=== PATIENT | male | born 1980 | race Caucasian/White ===

== ENCOUNTER 2017-02-14 16:13 | Emergency (ER) | payer BC, OTHER ==
[~2017-02-14] VITALS: Ht 185.4 cm; Wt 174.8 kg
[~2017-02-14 16:13] MED LIST: BUPR150T5 PO; IBUP-1050 PO; LISI-461 PO; RANI150T3 PO
[2017-02-14 16:27] VITALS: TEMP 36.8; O2SAT 94; Ht 185.4 cm; Wt 174.8 kg
[2017-02-14] MEDS ORDERED: SODIUM CHLORIDE 0.9% 1000ML 1,000 ML IV STA ×2 (16:35)
[2017-02-14] MEDS ORDERED: LSNP/30 PO (16:58)
[2017-02-14] MEDS ORDERED: BUPRTAB51 PO (16:58)
[2017-02-14] MEDS ORDERED: CYCL5TAB PO (16:58)
[2017-02-14 17:03] LABS: BASO % 0.2 %; BASO ABS # 0.02 K/uL (0-0.2); COMPLETE YES; HEMATOCRIT 44.4 % (42-52); IG% 0.5 %; LYMPH % 16.6 %; LYMPH ABS # 1.81 K/uL (1.2-3.4); MEAN CELL VOLUME 88.3 fL (80-100); MEAN CORPUSCULAR HEMOGLOBIN 31.4 pg (25-34); MEAN CORPUSCULAR HGB CONC 35.6 g/dl (32-36); MEAN PLATELET VOLUME 9.7 fL (7.4-10.4); MONO % 6.1 %; NEUT % 75.6 %; PLATELET COUNT 304 K/uL (130-400); RED BLOOD COUNT 5.03 M/uL (4.7-6.1); WHITE BLOOD COUNT 10.88 K/uL (4.8-10.8)
--- NOTE | 2017-02-14 17:05 | DIAGNOSTIC IMAGING REPORT ---
CHEST ONE VIEW PORTABLE CLINICAL HISTORY: near syncope mental status change COMPARISON STUDY: No previous studies for comparison. FINDINGS: The bones soft tissues and hemidiaphragms are normal. The cardiomediastinal silhouette is normal. The lungs are clear. The pulmonary vasculature is normal. IMPRESSION: Negative chest. The above report was generated using voice recognition software. It may contain grammatical, syntax or spelling errors. Electronically signed by: Nain Orellana M.D. 02/14/2017 5:04 PM Dictated Date/Time: 02/14/2017 5:04 PM
[2017-02-14 17:27] LABS: BLOOD UREA NITROGEN 22 mg/dl (7-18); BUN/CREATININE RATIO 14.6 (10-20); CALCIUM 9.9 mg/dl (8.5-10.1); CARBON DIOXIDE 27 mmol/L (21-32); CHLORIDE 102 mmol/L (98-107); GLUCOSE 103 mg/dl (70-99); MAGNESIUM 1.9 mg/dl (1.8-2.4); POTASSIUM 3.6 mmol/L (3.5-5.1); SODIUM 138 mmol/L (136-145)
[2017-02-14 18:06] VITALS: BP 122/85; PULSE 81; O2SAT 100
--- NOTE | 2017-02-14 18:09 | EMERGENCY ROOM VISIT NOTE ---
History First contact with patient: 16:21 Chief Complaint: SYNCOPE (NEAR SYNCOPE) Stated Complaint: NEAR SYNCOPE Nursing Triage Summary: Pt arrives by ALS for near syncopal episode. 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 Suddenly felt like he was going to pass out. Reports he became weak and dizzy. States that he took a Potassium pill this am, "I do that when I know it's going to be hot outside". was drinking water and Gatorade throughout the day, "I sweat it out as fast as I can get it in me". Pt reports some cramping to his lower back and left side under his ribs. most comfortable lying flat. pt states "I just feel exhausted". hx of HTN History of Present Illness The patient is a 36 year old male who presents to the Emergency Room with complaints of a near syncopal episode. 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 He states that he was feeling very overheated, and he began to feel nauseous and dizzy. He states that his peripheral vision seems to go and he felt like he was going to pass out. He states that he laid down and began to feel slightly better. He did have some cramping in his chest and lower back which has since resolved. He states that at this time, he feels tired and slightly woozy, but denies any other acute symptoms. He states he did have a similar episode to this several years ago while working in the heat. The patient denies any chest pain or shortness of breath at this time. He has a history of hypertension but denies any cardiac problems. Review of Systems A complete 10 point review of systems was reviewed with the patient with pertinent positives and negatives as per history of present illness. All else were negative. Social History Smoking Status: Never Smoker Current/Historical Medications Scheduled Bupropion Hcl (Wellbutrin Xl), 300 MG PO QAM Lisinopril (Zestril), 30 MG PO DAILY Scheduled PRN Ibuprofen (Advil), 600-800 MG PO Q8 PRN for Pain Ranitidine Hcl (Zantac), 150 MG PO DAILY PRN for Heartburn Allergies Coded Allergies: Naphazoline (Verified Allergy, Unknown, REDNESS OF EYES, 03/25/14) Physical Exam Vital Signs Date Time Temp Pulse Resp B/P (MAP) Pulse Ox O2 Delivery O2 Flow Rate FiO2 7/19/17 18:06 81 20 122/85 100 Room Air 02/14/17 17:07 85 20 137/81 95 Room Air 02/14/17 16:53 90 22 127/72 94 Room Air 89 127/77 97 108/80 02/14/17 16:34 91 02/14/17 16:27 94 Room Air 02/14/17 16:27 36.8 89 24 119/88 93 Room Air Physical Exam VITALS: Vitals are noted on the nurse's note and reviewed by myself. Vital signs stable. GENERAL: This is a 36-year-old male, in no acute distress, nondiaphoretic, well- developed well-nourished. SKIN: Capillary reflex less than 2 seconds. HEENT: Normocephalic. PERRLA. EOMI. Nares patent. Mucous membranes moist. Neck is supple without nuchal rigidity. HEART: Regular rate and rhythm without murmurs gallops or rubs. LUNGS: Clear to auscultation bilaterally without wheezes, rales or rhonchi. MUSCULOSKELETAL: Full range of motion throughout. Strength 5/5 throughout. NEURO: Patient was alert and oriented to person place and time. Normal sensation to light and sharp touch. Deep tendon reflexes 2+ throughout. No focal neurological deficits. Medical Decision & Procedures ER Provider Diagnostic Interpretation: CHEST ONE VIEW PORTABLE CLINICAL HISTORY: near syncope mental status change COMPARISON STUDY: No previous studies for comparison. FINDINGS: The bones soft tissues and hemidiaphragms are normal. The cardiomediastinal silhouette is normal. The lungs are clear. The pulmonary vasculature is normal. IMPRESSION: Negative chest. Laboratory Results 02/14/17 16:24 Red Blood Count 5.03, Mean Corpuscular Volume 88.3, Mean Corpuscular Hemoglobin 31.4, Mean Corpuscular Hemoglobin Concent 35.6, Mean Platelet Volume 9.7, Neutrophils (%) (Auto) 75.6, Lymphocytes (%) (Auto) 16.6, Monocytes (%) (Auto) 6.1, Eosinophils (%) (Auto) 1.0, Basophils (%) (Auto) 0.2, Neutrophils # (Auto) 8.23, Lymphocytes # (Auto) 1.81, Monocytes # (Auto) 0.66, Eosinophils # (Auto) 0.11, Basophils # (Auto) 0.02 02/14/17 16:24 Test 02/14/17 16:24 White Blood Count 10.88 K/uL (4.8-10.8) Red Blood Count 5.03 M/uL (4.7-6.1) Hemoglobin 15.8 g/dL (14.0-18.0) Hematocrit 44.4 % (42-52) Mean Corpuscular Volume 88.3 fL (80-100) Mean Corpuscular Hemoglobin 31.4 pg (25-34) Mean Corpuscular Hemoglobin Concent 35.6 g/dl (32-36) Platelet Count 304 K/uL (130-400) Mean Platelet Volume 9.7 fL (7.4-10.4) Neutrophils (%) (Auto) 75.6 % Lymphocytes (%) (Auto) 16.6 % Monocytes (%) (Auto) 6.1 % Eosinophils (%) (Auto) 1.0 % Basophils (%) (Auto) 0.2 % Neutrophils # (Auto) 8.23 K/uL (1.4-6.5) Lymphocytes # (Auto) 1.81 K/uL (1.2-3.4) Monocytes # (Auto) 0.66 K/uL (0.11-0.59) Eosinophils # (Auto) 0.11 K/uL (0-0.5) Basophils # (Auto) 0.02 K/uL (0-0.2) RDW Standard Deviation 40.8 fL (36.4-46.3) RDW Coefficient of Variation 12.8 % (11.5-14.5) Immature Granulocyte % (Auto) 0.5 % Immature Granulocyte # (Auto) 0.05 K/uL (0.00-0.02) Anion Gap 9.0 mmol/L (3-11) Est Creatinine Clear Calc Drug Dose 113.5 ml/min Estimated GFR () 68.4 Estimated GFR (Non- 59.0 BUN/Creatinine Ratio 14.6 (10-20) Calcium Level 9.9 mg/dl (8.5-10.1) Magnesium Level 1.9 mg/dl (1.8-2.4) Troponin I < 0.015 ng/ml (0-0.045) Thyroid Stimulating Hormone (TSH) 2.010 uIu/ml (0.300-4.500) Medications Administered Medications (Trade) Dose Ordered Sig/Nestor Route Start Time Stop Time Status Last Admin Dose Admin Sodium Chloride 1,000 ml @ 999 mls/hr Q1H1M STAT IV 02/14/17 16:35 02/14/17 17:35 DC 02/14/17 16:51 999 MLS/HR Sodium Chloride 1,000 ml @ 999 mls/hr Q1H1M STAT IV 02/14/17 16:35 02/14/17 17:35 DC 02/14/17 16:51 999 MLS/HR ECG Rate (beats per minute): 98 Rhythm: normal sinus Findings: no acute ischemic change, no ectopy Change: no significant change Medical Decision Differential diagnosis includes dehydration, orthostatic hypotension, anemia, cardiac arrhythmia, CVA, among others. The patient is a 36-year-old male who presents today complaining of a near syncopal episode. Labs revealed mild leukocytosis likely secondary to stress. No concerning anemia. No significant electrode abnormalities. Troponin was not elevated. Patient's orthostatic vital signs were mildly positive and BUN and creatinine were mildly elevated consistent with dehydration. He was hydrated with 2 L IV fluids and felt better. He was instructed to increase fluids at home and rest as much as possible. He will follow-up with his primary care provider as needed. He verbalized understanding of my assessment and treatment plan was discharged home in good condition. Based on the patient's presentation and work up, I feel the patient is stable for outpatient treatment. The patient was educated to return to the emergency department for any worsening of their current condition or new/concerning symptoms. He will follow up with his PCP. Medication reconciliation: I attest that I have personally reviewed the patient 's current medication list. Blood pressure screening: Patient was found to have normal blood pressure on screening and does not require follow-up. Impression Primary Impression: Pre-syncope Departure Information Dispostion Home / Self-Care Condition GOOD Referrals Maurilio Marks M.D. (PCP) Patient Instructions My [facility] Additional Instructions You have been treated in the Emergency Department today for Dehydration. Laboratory results have ruled out any emergent reasons for further evaluation or admission. It is ESSENTIAL that you maintain adequate hydration with oral fluids! Some suggestions include: - Water is the IDEAL replacement for lost fluids. You should initially sip at the water to help facilitate increased intestinal absorption rate and to decrease the possibility of nausea/vomiting. - Carbohydrate/Electrolyte-Containing Drinks (i.e. Gatorade, Powerade, Pedialyte). All of these are good choices, but it is important to remember that all of these drinks contain a high concentration of sugar. - Popsicles, ice chips, and fruit juices are all other options. - You may mix 1:1 solution of bottled Gatorade with bottled water. This dilution allows for a palatable flavor with added benefit of a reduction in the amount of sugar consumption. As with all Emergency Department visits, you should follow-up with your Primary Care Provider in 2-3 days for reevaluation. Return to the Emergency Department if your current symptoms worsen despite treatment course outlined above, or if you develop any of the following symptoms : increased thirst, weakness, dizziness, palpitations, confusion, sluggishness, fainting, inability to sweat, or decreased urine output.
== END 2017-02-14 18:19 | disposition home or self-care (01) ==
LOC: EDBD 16:13 → C.EDC 16:15
DX: R55 Syncope and collapse (principal); I10 Essential (primary) hypertension; Z79.899 Other long term (current) drug therapy

== ENCOUNTER 2018-03-14 12:16 | Emergency (ER) | payer BC, OTHER ==
[~2018-03-14 12:16] MED LIST changes: -BUPR150T5 PO; +BUPRTAB51 PO; -LISI-461 PO; +LISI30TA3 PO
[2018-03-14 12:23] VITALS: TEMP 37
[2018-03-14] MEDS ORDERED: SERT25TA PO (12:44)
[2018-03-14] MEDS ORDERED: IBUPROFEN 600 MG TAB PO STA (12:51)
--- NOTE | 2018-03-14 13:33 | DIAGNOSTIC IMAGING REPORT ---
L ANKLE MIN 3 VIEWS ROUTINE CLINICAL HISTORY: 37 years-old Male presenting with Ankle injury. TECHNIQUE: Frontal, mortise, and lateral views of the left ankle were obtained. COMPARISON: None. FINDINGS: Ankle mortise intact. Irregularity at the inferior pole the medial malleolus suggests old injury. Os peroneum. Degenerative changes of the ankle mortise. No acute fracture or malalignment. No radiographic soft tissue abnormality. Phleboliths noted. Diffuse soft tissue swelling at the ankle. IMPRESSION: 1. No acute osseous injury. 2. Degenerative changes of the ankle. Electronically signed by: Robbi Baron M.D. 03/14/2018 1:31 PM Dictated Date/Time: 03/14/2018 1:19 PM
--- NOTE | 2018-03-14 14:04 | EMERGENCY ROOM VISIT NOTE ---
ED Visit Note First contact with patient: 12:27 CHIEF COMPLAINT: Left ankle injury HISTORY OF PRESENT ILLNESS: This 37-year-old male presents to ER with chief complaint when he stepped out of his work truck his boot got stuck and he rolled his left ankle. The patient states that he felt a "pop" in his ankle. He states that when he had the pain from the pop it almost felt like he passed out but he states he was conscious when he hit the ground. The patient states he was able to put weight on it but it was very painful. The patient admits that he had prior surgery to the left ankle 15 years ago. REVIEW OF SYSTEMS: 6 system review was performed and was negative unless stated otherwise in history of present illness. PMH: Prior ankle injury as noted in HPI. Inguinal hernia repair SOCIAL HISTORY: Patient denies tobacco use but admits to occasional alcohol use. PHYSICAL EXAM: Vital Signs: Were reviewed reviewed Nurse's notes. GENERAL: Morbidly obese 37-year-old white male appears in no acute distress. MENTAL STATUS: Alert, oriented, and cooperative. LEFT ANKLE: The ankle is swollen and tender over the lateral aspect but the skin is intact and there is no ligamentous instability. There is no deformity. The foot and toes are warm and well-perfused. Sensation to pain and light touch is intact. EMERGENCY DEPARTMENT COURSE: Patient was evaluated. The patient was given Motrin 600 mg p.o. for pain. X-ray of the left ankle was ordered interpreted by the radiologist and myself. DIAGNOSTICS:L ANKLE MIN 3 VIEWS ROUTINE CLINICAL HISTORY: 37 years-old Male presenting with Ankle injury. TECHNIQUE: Frontal, mortise, and lateral views of the left ankle were obtained. COMPARISON: None. FINDINGS: Ankle mortise intact. Irregularity at the inferior pole the medial malleolus suggests old injury. Os peroneum. Degenerative changes of the ankle mortise. No acute fracture or malalignment. No radiographic soft tissue abnormality. Phleboliths noted. Diffuse soft tissue swelling at the ankle. IMPRESSION: 1. No acute osseous injury. 2. Degenerative changes of the ankle. Electronically signed by: Robbi Baron M.D. 03/14/2018 1:31 PM The patient was informed of the findings. The patient was placed in a gel splint given crutches. The patient was discharged home in stable condition. DIAGNOSIS: Sprained left ankle DISCHARGE INSTRUCTIONS: Ice and elevation over the next 24 hours. Ibuprofen, 600 mg every 6 hours if needed for pain. Use crutches and wear gel splint until weightbearing is tolerable. Follow-up with your family doctor for Workmen's Comp. physician on Sunday for reevaluation. Off work until reevaluated. Current/Historical Medications Scheduled Bupropion Hcl (Wellbutrin Xl), 300 MG PO QAM Lisinopril (Zestril), 30 MG PO DAILY Sertraline (Zoloft), 25 MG PO QAM Scheduled PRN Ibuprofen (Advil), 600-800 MG PO Q8 PRN for Pain Allergies Coded Allergies: Naphazoline (Verified Allergy, Unknown, REDNESS OF EYES, 03/14/18) Vital Signs Date Time Temp Pulse Resp B/P (MAP) Pulse Ox O2 Delivery O2 Flow Rate FiO2 03/14/18 12:23 37.0 85 18 134/81 94 Room Air Medications Administered Medications (Trade) Dose Ordered Sig/Nestor Route Start Time Stop Time Status Last Admin Dose Admin Ibuprofen (Motrin Tab) 600 mg NOW STAT PO 03/14/18 12:51 03/14/18 12:52 DC 03/14/18 12:57 600 MG Departure Information Referrals Maurilio Marks M.D. (PCP) Patient Instructions My [facility]
[2018-03-14 14:16] VITALS: BP 141/71; PULSE 79; O2SAT 96
== END 2018-03-14 14:17 | disposition home or self-care (01) ==
LOC: C.EDB 12:17 → C.EDD 14:17
DX: S93.402A Sprain of unspecified ligament of left ankle, initial encounter (principal); W17.89XA Other fall from one level to another, initial encounter; Z79.899 Other long term (current) drug therapy; Z88.8 Allergy status to other drugs, medicaments and biological substances

== ENCOUNTER 2021-08-01 08:46 | Inpatient (IN) ==
--- NOTE | 2021-08-01 09:39 | Emergency Department Note ---
History of Present Illness General Chief complaint: Shortness of Breath/Dyspnea Stated complaint: SOB,COUGH,COVID + Time Seen by Provider: 08/01/21 09:27 History of Present Illness Maximum Pain Intensity: 10 41-year-old male presents to the ED with a chief complaint of increasing shortness of breath and fatigue as well as nausea and generalized body pain. He also reports a cough. He had a positive home test for Covid yesterday. He has had the symptoms for about a week or so. He does use CPAP at home. No additional complaints. His initial pulse ox in triage showed 91% on room air. With minimal ambulation in the room, his pulse ox drops to 88%. He is tachypneic. Exertion makes his symptoms worse. Nothing makes it better. Home Medications Medication Instructions Recorded Confirmed Type lisinopril 40 mg tablet (Zestril) 40 mg PO QAM 07/13/19 08/01/21 History clonidine HCl 0.1 mg tablet 0.1 mg PO HS 04/08/21 08/01/21 History topiramate 50 mg tablet (Topamax) 75 mg PO HS 04/08/21 08/01/21 History trazodone 50 mg tablet 50 - 75 mg PO HS PRN 04/08/21 08/01/21 History lisdexamfetamine 30 mg capsule 30 mg PO DAILY 08/01/21 08/01/21 History (Vyvanse) vortioxetine 20 mg tablet 20 mg PO DAILY 08/01/21 08/01/21 History (Trintellix) Allergies Allergy/AdvReac Type Severity Reaction Status Date / Time naphazoline Allergy Unknown REDNESS OF Verified 08/01/21 10:15 EYES Past Med/Surg History Medical History Depression HTN (hypertension) Surgical History H/O inguinal hernia repair Family History (Updated 08/01/21 @ 12:19 by WESTON Prieto) Father Hypertension Social History (Updated 08/01/21 @ 12:20 by WESTON Prieto) Smoking Status: Former smoker Hx Alcohol Use: No Preferred Language: Japanese Feels Safe at Home: Yes Review of Systems A total of 10 systems reviewed and were otherwise negative Physical Exam Vital Signs Vital Signs - 24 hr 08/01/21 08:50 08/01/21 09:26 08/01/21 09:47 Temperature 36.4 C L 38.1 C H Temperature Source Temporal Artery Scan Axillary Pulse Rate 97 H Pulse Rate [Apical] 93 H Respiratory Rate 30 H 20 Blood Pressure 143/90 H Blood Pressure [Right Arm] 124/54 L Blood Pressure Mean 107 Blood Pressure Mean [Right Arm] 77 Pulse Oximetry 91 93 Oxygen Delivery Method Room Air Room Air Room Air Oxygen Flow Rate 93 Sepsis Recent Fever Within 48 Hours No Sepsis New/Unexplained Change in Mental Status No Sepsis Action Taken by Nursing No Action Required CONSTITUTIONAL/VITAL SIGNS: Reviewed / noted above. GENERAL: Non-toxic in appearance. Morbidly obese. INTEGUMENTARY: Warm, dry, and [place]. HEAD: Normocephalic. EYES: without scleral icterus or trauma. ENT/OROPHARYNX: clear and moist. LYMPHADENOPATHY/NECK: Is supple without lymphadenopathy or meningismus. RESPIRATORY: Clear anteriorly but diminished to auscultation bilaterally. Mild increased work of breathing that becomes moderate with exertion. CARDIOVASCULAR: Regular rate and rhythm. GI/ABDOMEN: Soft and nontender. No organomegaly or pulsatile mass. EXTREMITIES: Warm and well perfused. BACK: No CVA tenderness. NEUROLOGICAL: Intact without focal deficits. PSYCHIATRIC: normal affect. MUSCULOSKELETAL: Normally developed with good muscle tone. TRIAGE NURSING DOCUMENTATION REVIEWED. Course Administered Medications Discontinued Medications Albuterol (Albuterol Hfa 8 Gm Inhaler) 2 puffs INH NOW ONE Stop: 08/01/21 09:43 Last Admin: 08/01/21 10:47 Dose: 2 puffs Documented by: [id number] Dexamethasone Sodium Phosphate (DexamethasonePf 10 Mg/Ml Vial) 10 mg IV NOW ONE Stop: 08/01/21 09:43 Last Admin: 08/01/21 10:49 Dose: 10 mg Documented by: [id number] Ioversol (Optiray 320 125ml) 107 ml IV ONCE ONE Stop: 08/01/21 11:42 Last Admin: 08/01/21 11:44 Dose: 107 ml Documented by: [id number] Medical Decision Making Differential Diagnosis The differential was considered includes acute myocardial infarction, acute coronary syndrome, myocarditis, pericarditis, pericardial effusions /tamponad, esophageal perforation, pulmonary embolism, pneumonia, pneumothorax, cardiomyopathy, congestive heart, anemia , COPD/asthma exacerbation. Medical Records Attestation: I reviewed the patient's medical records. Home Medications Current Medication List: was personally reviewed by me Laboratory Data Attestation: I reviewed the patient's lab results. Result diagrams: 08/01/21 10:31 08/01/21 10:31 Lab Results 08/01/21 08/01/21 08/01/21 Range/Units 10:20 10:31 10:31 WBC 7.22 (4.8-10.8) K/uL RBC 4.85 (4.7-6.1) M/uL Hgb 15.2 (14.0-18.0) g/dL Hct 44.0 (42-52) % MCV 90.7 (80-100) fL MCH 31.3 (25-34) pg MCHC 34.5 (32-36) g/dL RDW Std Deviation 43.6 (36.4-46.3) fL RDW Coeff of Stephanie 13.1 (11.5-14.5) % Plt Count 200 (130-400) K/uL MPV 9.3 (7.4-10.4) fL Immature Gran % (Auto) 0.4 % Neut % (Auto) 80.1 % Lymph % (Auto) 14.4 % [place] % (Auto) 5.0 % Eos % (Auto) 0.0 % Baso % (Auto) 0.1 % Neut # (Auto) 5.78 (1.4-6.5) K/uL Lymph # (Auto) 1.04 L (1.2-3.4) K/uL [place] # (Auto) 0.36 (0.11-0.59) K/uL Eos # (Auto) 0.00 (0-0.5) K/uL Baso # (Auto) 0.01 (0-0.2) K/uL Immature Gran # (Auto) 0.03 H (0.00-0.02) K/uL PT (9.0-12.0) Seconds INR (0.9-1.1) APTT (21.0-31.0) Seconds PTT Ratio D-Dimer (0-500) ug/L FEU Sodium 134 L (136-145) mmol/L Potassium 4.0 (3.5-5.1) mmol/L Chloride 103 (98-107) mmol/L Carbon Dioxide 23 (21-32) mmol/L Anion Gap 8.0 (3-11) BUN 14 (7-18) mg/dl Creatinine 0.97 (0.6-1.4) mg/dl Est Cr Clr Drug Dosing 155.4 ml/min Est GFR ( Amer) 111.9 ml/min Est GFR (Non-Af Amer) 96.6 ml/min BUN/Creatinine Ratio 14.1 (10-20) Glucose 116 H (70-99) mg/dl Calcium 8.4 L (8.5-10.1) mg/dl Total Bilirubin 0.7 (0.2-1) mg/dl AST 68 H (15-37) U/L ALT 68 (12-78) Alkaline Phosphatase 64 (45-117) U/L Troponin I < 0.015 (0-0.045) ng/ml C-Reactive Protein 11.10 H (0-0.29) mg/dl NT-Pro-B Natriuret Pep 21 (0-450) pg/ml Total Protein 7.4 (6.4-8.2) gm/dl Albumin 2.9 L (3.4-5.0) gm/dl Globulin 4.5 H (2.5-4.0) gm/dl Albumin/Globulin Ratio 0.6 L (0.9-2) Procalcitonin (0-0.5) ng/ml SARS-CoV-2, RNA, NAAT POSITIVE A* (NEGATIVE) 08/01/21 08/01/21 Range/Units 10:31 10:33 WBC (4.8-10.8) K/uL RBC (4.7-6.1) M/uL Hgb (14.0-18.0) g/dL Hct (42-52) % MCV (80-100) fL MCH (25-34) pg MCHC (32-36) g/dL RDW Std Deviation (36.4-46.3) fL RDW Coeff of Stephanie (11.5-14.5) % Plt Count (130-400) K/uL MPV (7.4-10.4) fL Immature Gran % (Auto) % Neut % (Auto) % Lymph % (Auto) % [place] % (Auto) % Eos % (Auto) % Baso % (Auto) % Neut # (Auto) (1.4-6.5) K/uL Lymph # (Auto) (1.2-3.4) K/uL [place] # (Auto) (0.11-0.59) K/uL Eos # (Auto) (0-0.5) K/uL Baso # (Auto) (0-0.2) K/uL Immature Gran # (Auto) (0.00-0.02) K/uL PT 9.8 (9.0-12.0) Seconds INR 1.0 (0.9-1.1) APTT 31.1 H (21.0-31.0) Seconds PTT Ratio 1.2 D-Dimer 970 H* (0-500) ug/L FEU Sodium (136-145) mmol/L Potassium (3.5-5.1) mmol/L Chloride (98-107) mmol/L Carbon Dioxide (21-32) mmol/L Anion Gap (3-11) BUN (7-18) mg/dl Creatinine (0.6-1.4) mg/dl Est Cr Clr Drug Dosing ml/min Est GFR ( Amer) ml/min Est GFR (Non-Af Amer) ml/min BUN/Creatinine Ratio (10-20) Glucose (70-99) mg/dl Calcium (8.5-10.1) mg/dl Total Bilirubin (0.2-1) mg/dl AST (15-37) U/L ALT (12-78) Alkaline Phosphatase (45-117) U/L Troponin I (0-0.045) ng/ml C-Reactive Protein (0-0.29) mg/dl NT-Pro-B Natriuret Pep (0-450) pg/ml Total Protein (6.4-8.2) gm/dl Albumin (3.4-5.0) gm/dl Globulin (2.5-4.0) gm/dl Albumin/Globulin Ratio (0.9-2) Procalcitonin 0.14 (0-0.5) ng/ml SARS-CoV-2, RNA, NAAT (NEGATIVE) Imaging Data Radiologist's Impression: Chest X-Ray 08/01/21 09:34 XR chest 1V portable HISTORY: 41 years-old Male Dyspnea acute shortness of breath COMPARISON: Chest radiograph 02/14/2017 TECHNIQUE: Portable AP view of the chest FINDINGS: Cardiac silhouette is enlarged. No pneumothorax or large pleural effusion. Interstitial coarsening with patchy right greater than left alveolar opacities. Degenerative spurring of the shoulders. IMPRESSION: Patchy right greater than left airspace opacities are suggestive of multifocal pneumonia. ACT 112: Negative or not required by law. The above report was generated using voice recognition software. It may contain grammatical, syntax or spelling errors. Electronically signed by: Tramaine Piña M.D. 08/01/2021 9:58 AM Chest CTA 08/01/21 11:07 CT angio chest PE protocol CLINICAL HISTORY: sob TECHNIQUE: Multidetector row helical CT of the chest was performed. Coronal and sagittal reformations were obtained. Coronal and sagittal MIPS were obtained from the axial data set and were submitted for review. Automated dose lowering techniques and/or adjustment according to patient size were utilized for this exam. Comparison: None available at the time of this dictation. FINDINGS: Lungs and pleura: Multifocal groundglass opacities are seen. Heart and pericardium: Heart size is normal. No pericardial effusion. Vessels: No evidence of pulmonary embolism. Mediastinum and eagle: Unremarkable. Chest wall and lower neck: Unremarkable. Abdomen: Unremarkable. Bones: Unremarkable. IMPRESSION: 1. No evidence of pulmonary embolism. 2. Multifocal groundglass opacities compatible with history of viral pneumonia. ACT 112: Negative or not required by law. Electronically signed by: Guzman Mcduffie M.D. 08/01/2021 12:00 PM ECG Data Attestation: I personally reviewed and interpreted this ECG as follows: Additional Comments: Twelve-lead EKG: Per my interpretation there is a normal sinus rhythm at a rate of 92. No ST elevation. No PVCs. Normal QTC MDM Narrative 41-year-old male presents with shortness of breath in the setting of a positive home Covid test yesterday. He has had symptoms for about a week. Progressively worsening. Room air saturations of 88% with minimal ambulation. Twelve-lead EKG shows a normal sinus rhythm. Chest x-ray shows right greater than left pne umonia. Covid test is positive. CBC and chemistry panel was unremarkable. D- dimer is 970. Troponin was negative. BNP is normal. CRP is 11. CT scan did not show PE. The patient was treated with an albuterol inhaler as well as some Decadron. He will be seen by the hospitalist for further inpatient evaluation and care. Impression & Plan 2019 novel coronavirus-infected pneumonia (NCIP), Hypoxia Discharge Plan Visit Data Chief Complaint: Shortness of Breath/Dyspnea Stated Complaint: SOB,COUGH,COVID + ED Provider: Kleber Ford Discharge Problem: 2019 novel coronavirus-infected pneumonia (NCIP), Hypoxia Patient Disposition: Being Evaluated by Hospitalist Forms Stand Alone Forms: [facility] Prescriptions Prescriptions: No Action lisinopril [Zestril] 40 mg tablet 40 mg PO QAM RF: 0 clonidine HCl 0.1 mg tablet 0.1 mg PO HS RF: 0 topiramate [Topamax] 50 mg tablet 75 mg PO HS RF: 0 trazodone 50 mg tablet 50 - 75 mg PO HS PRN (Reason: Sleep) RF: 0 Vyvanse 30 mg capsule 30 mg PO DAILY RF: 0 Trintellix 20 mg tablet 20 mg PO DAILY RF: 0 Referrals Referrals: Maurilio Marks MD [Primary Care Provider] -
[2021-08-01] MEDS ORDERED: ALBUTEROL HFA 8 GM INHALER INH ONE (09:42)
[2021-08-01] MEDS ORDERED: dexAMETHasone**PF** 10 MG/ML VIAL IV ONE (09:42)
--- NOTE | 2021-08-01 09:59 | XRay Report ---
XR chest 1V portable HISTORY: 41 years-old Male Dyspnea acute shortness of breath COMPARISON: Chest radiograph 02/14/2017 TECHNIQUE: Portable AP view of the chest FINDINGS: Cardiac silhouette is enlarged. No pneumothorax or large pleural effusion. Interstitial coarsening wi th patchy right greater than left alveolar opacities. Degenerative spurring of the shoulders. IMPRESSION: Patchy right greater than left airspace opacities are suggestive of multifocal pneumonia. ACT 112: Negative or not required by law. The above report was generated using voice recognition software. It may contain grammatical, syntax o r spelling errors. Electronically signed by: Tramaine Piña M.D. 08/01/2021 9:58 AM
[2021-08-01 10:43] LABS: Basophils # (auto) 0.01 K/uL (0-0.2); Basophils % (auto) 0.1 %; Hemoglobin 15.2 g/dL (14.0-18.0); Immature Granulocytes # (auto) 0.03 K/uL (0.00-0.02); Immature Granulocytes % (auto) 0.4 %; Lymphocytes # (auto) 1.04 K/uL (1.2-3.4); Lymphocytes % (auto) 14.4 %; Mean Corpuscular Hemoglobin 31.3 pg (25-34); Mean Corpuscular Hgb Conc 34.5 g/dL (32-36); Mean Corpuscular Volume 90.7 fL (80-100); Mean Platelet Volume 9.3 fL (7.4-10.4); Monocytes # (auto) 0.36 K/uL (0.11-0.59); Neutrophils # (auto) 5.78 K/uL (1.4-6.5); Neutrophils % (auto) 80.1 %; Platelet Count 200 K/uL (130-400); RDW Coefficient of Variation 13.1 % (11.5-14.5); RDW Standard Deviation 43.6 fL (36.4-46.3); Red Blood Count 4.85 M/uL (4.7-6.1); White Blood Count 7.22 K/uL (4.8-10.8)
[2021-08-01 10:55] LABS: Partial Thromboplastin Ratio 1.2; Partial Thromboplastin Time 31.1 Seconds (21.0-31.0); Prothrombin Time 9.8 Seconds (9.0-12.0)
[2021-08-01 11:03] LABS: Alanine Aminotransferase 68 (12-78); Albumin Level 2.9 gm/dl (3.4-5.0); Aspartate Aminotransferase 68 U/L (15-37); BUN Creatinine Ratio 14.1 (10-20); Blood Urea Nitrogen 14 mg/dl (7-18); Calcium 8.4 mg/dl (8.5-10.1); Carbon Dioxide 23 mmol/L (21-32); Chloride 103 mmol/L (98-107); Creatinine Clr Calc Pharmacy 155.4 ml/min; Est GFR (African American) 111.9 ml/min; Est GFR (Non-African American) 96.6 ml/min; Glucose 116 mg/dl (70-99); Sodium 134 mmol/L (136-145)
[2021-08-01 11:07] LABS: D Dimer 970 ug/L FEU (0-500)
[2021-08-01 11:08] LABS: Albumin Globulin Ratio 0.6 (0.9-2); Alkaline Phosphatase 64 U/L (45-117); Bilirubin,Total 0.7 mg/dl (0.2-1); Globulin 4.5 gm/dl (2.5-4.0); NT Pro B Type Natriuretic Pept 21 pg/ml (0-450); Total Protein 7.4 gm/dl (6.4-8.2); Troponin I < 0.015 ng/ml (0-0.045)
[2021-08-01] MEDS ORDERED: ACETAMINOPHEN 500 MG TAB PO STA (11:38)
[2021-08-01] MEDS ORDERED: OPTIRAY 320 125ml IV ONE (11:41)
--- NOTE | 2021-08-01 12:01 | CT Scan Report ---
CT angio chest PE protocol CLINICAL HISTORY: sob TECHNIQUE: Multidetector row helical CT of the chest was performed. Coronal and sagittal reformations were obtained. Coronal and sagittal MIPS were obtained from the axial data set and were submitted fo r review. Automated dose lowering techniques and/or adjustment according to patient size were utiliz ed for this exam. Comparison: None available at the time of this dictation. FINDINGS: Lungs and pleura: Multifocal groundglass opacities are seen. Heart and pericardium: Heart size is normal. No pericardial effusion. Vessels: No evidence of pulmonary embolism. Mediastinum and eagle: Unremarkable. Chest wall and lower neck: Unremarkable. Abdomen: Unremarkable. Bones: Unremarkable. IMPRESSION: 1. No evidence of pulmonary embolism. 2. Multifocal groundglass opacities compatible with history of viral pneumonia. ACT 112: Negative or not required by law. Electronically signed by: Guzman Mcduffie M.D. 08/01/2021 12:00 PM
--- NOTE | 2021-08-01 12:23 | History & Physical Report ---
Date of Service August 01, 2021 Assessment & Plan (1) Pneumonia due to COVID-19 virus: (2) Hypoxia: Plan: -Admit to [facility] -Patient presenting from home with reports of cough, fever, exertional shortness of breath, nausea, poor appetite x 10 days -In the ED, tested positive for COVID-19. Patient is unvaccinated. -Currently saturating 90-93% at rest, hypoxic in the high 80s with ambulation -CTA chest negative for pulmonary embolism, show signs of viral pneumonia -S/p dexamethasone 10 mg IV in the ED, continue with dexamethasone 6 mg IV daily. Given duration of symptoms, patient does not meet criteria for remdesivir. Also given minimal oxygen requirement does not meet criteria for immunomodulator treatment at this time. -Lasix 40 mg IV x 1 -Continue supportive care with flutter valve, incentive spirometer, encourage self proning (3) HTN (hypertension): Plan: -BP controlled, continue lisinopril (4) Depression: Plan: -Continue home medications (5) DVT prophylaxis: Plan: -SQ Lovenox History of Present Illness Chief Complaint: Cough, fever, shortness of breath Primary Care Provider: Maurilio Marks MD 41-year-old male with PMH HTN, SIDRA on BiPAP, depression, and other problems listed below who presents the ED for evaluation of cough, shortness of breath, fever. Patient reports that he has been sick for the past 10 days. Reports worsening productive cough. Patient is unsure of the color of the sputum. He reports running a fever of as high as 102.8. He has been taking Tylenol. Patient reports shortness of breath with minimal exertion. He has had a very poor appetite with nausea and a couple episodes of vomiting. He also reports associated diarrhea. No abdominal pain. Denies chest pain. No lightheadedness, dizziness, diaphoresis, syncopal events. Denies urinary symptoms. In the ED, patient tested positive for COVID-19. CTA chest negative for pulmonary embolism however shows signs of COVID-19 pneumonia. Patient is saturating 90% at rest and desaturated quickly into the 80s with minimal ambulation. Patient was given IV dexamethasone 10 mg and albuterol inhaler. Allergies Allergy/AdvReac Type Severity Reaction Status Date / Time naphazoline Allergy Unknown REDNESS OF Verified 08/01/21 10:15 EYES Home Medications Medication Instructions Recorded Confirmed Type lisinopril 40 mg tablet (Zestril) 40 mg PO QAM 07/13/19 08/01/21 History clonidine HCl 0.1 mg tablet 0.1 mg PO HS 04/08/21 08/01/21 History topiramate 50 mg tablet (Topamax) 75 mg PO HS 04/08/21 08/01/21 History trazodone 50 mg tablet 50 - 75 mg PO HS PRN 04/08/21 08/01/21 History lisdexamfetamine 30 mg capsule 30 mg PO DAILY 08/01/21 08/01/21 History (Vyvanse) vortioxetine 20 mg tablet 20 mg PO DAILY 08/01/21 08/01/21 History (Trintellix) Past Med/Surg History Medical History Depression HTN (hypertension) Surgical History H/O inguinal hernia repair Family History (Updated 08/01/21 @ 12:19 by WESTON Prieto) Father Hypertension Social History (Updated 08/01/21 @ 12:20 by WESTON Prieto) Smoking Status: Former smoker Hx Alcohol Use: No Preferred Language: Malian Feels Safe at Home: Yes Review of Systems Review of Systems: ROS per HPI, all other systems reviewed and negative Physical Exam Constitutional: + ill appearing and + obese; no acute distress Eyes: PERRL, conjunctivae normal, anicteric sclerae ENMT: external ear and nose normal, oropharynx normal Respiratory: normal respiratory effort; no respiratory distress Auscultation: + diminished lung sounds Cardiovascular: Rate/Rhythm: regular rate and regular rhythm Vessels: normal peripheral pulses Extremities: no edema Gastrointestinal (Abdomen): normal bowel sounds, soft, nontender, no hepatosplenomegaly Musculoskeletal: no cyanosis or clubbing, extremities motor strength 5/5 Skin: no rashes, warm and dry Neurologic: PERRL, EOMI, accommodation nl, no face palsy, no dysarthria Psychiatric: A+Ox3, euthymic affect Results & Data Results & Data ([facility]) Vital Signs (Past 12 Hours) Vital Signs Temp Pulse Pulse Resp BP BP Pulse Ox 08/01/21 09:47 38.1 C H 93 H 20 124/54 L 93 08/01/21 09:26 91 08/01/21 08:50 36.4 C L 97 H 30 H 143/90 H Laboratory Results Short CBC 08/01/21 Range/Units 10:31 WBC 7.22 (4.8-10.8) K/uL Hgb 15.2 (14.0-18.0) g/dL Hct 44.0 (42-52) % Plt Count 200 (130-400) K/uL BMP 08/01/21 10:31 Sodium 134 L Potassium 4.0 Chloride 103 Carbon Dioxide 23 BUN 14 Creatinine 0.97 Glucose 116 H Calcium 8.4 L Cardiac Enzymes 08/01/21 Range/Units 10:31 Troponin I < 0.015 (0-0.045) ng/ml Liver Function 08/01/21 Range/Units 10:31 Total Bilirubin 0.7 (0.2-1) mg/dl AST 68 H (15-37) U/L ALT 68 (12-78) Alkaline Phosphatase 64 (45-117) U/L Albumin 2.9 L (3.4-5.0) gm/dl Diagnostic Findings Chest X-Ray 08/01/21 09:34 XR chest 1V portable HISTORY: 41 years-old Male Dyspnea acute shortness of breath COMPARISON: Chest radiograph 02/14/2017 TECHNIQUE: Portable AP view of the chest FINDINGS: Cardiac silhouette is enlarged. No pneumothorax or large pleural effusion. Interstitial coarsening with patchy right greater than left alveolar opacities. Degenerative spurring of the shoulders. IMPRESSION: Patchy right greater than left airspace opacities are suggestive of multifocal pneumonia. ACT 112: Negative or not required by law. The above report was generated using voice recognition software. It may contain grammatical, syntax or spelling errors. Electronically signed by: Tramaine Piña M.D. 08/01/2021 9:58 AM Chest CTA 08/01/21 11:07 CT angio chest PE protocol CLINICAL HISTORY: sob TECHNIQUE: Multidetector row helical CT of the chest was performed. Coronal and sagittal reformations were obtained. Coronal and sagittal MIPS were obtained from the axial data set and were submitted for review. Automated dose lowering techniques and/or adjustment according to patient size were utilized for this exam. Comparison: None available at the time of this dictation. FINDINGS: Lungs and pleura: Multifocal groundglass opacities are seen. Heart and pericardium: Heart size is normal. No pericardial effusion. Vessels: No evidence of pulmonary embolism. Mediastinum and eagle: Unremarkable. Chest wall and lower neck: Unremarkable. Abdomen: Unremarkable. Bones: Unremarkable. IMPRESSION: 1. No evidence of pulmonary embolism. 2. Multifocal groundglass opacities compatible with history of viral pneumonia. ACT 112: Negative or not required by law. Electronically signed by: Guzman Mcduffie M.D. 08/01/2021 12:00 PM Code Status & VTE Plan VTE Prophylaxis Plan VTE Prophylaxis will be ordered: Yes Supervising Physician Co-Signing Physician Notes Attending addendum The patient was seen and examined in emergency room He has been using BiPAP and maintaining saturation Denies any symptoms except shortness of breath and cough On examination Morbidly obese Hemodynamically stable with temperature 38.1 Chest-decreased breath sound bilaterally Heart-S1-S2, regular Abdomen-distended, benign Extremities-trace edema bilaterally Admission labs and imaging studies reviewed As Covid pneumonia. unvaccinated Agree with assessment and plan as outlined above by Smita Blackburn
[2021-08-01] MEDS ORDERED: FUROSEMIDE 40 MG/4 ML VIAL IV ONE (12:24)
--- NOTE | 2021-08-01 14:16 | Electrocardiogram Report ---
Test Reason : Blood Pressure : / mmHG Vent. Rate : 092 BPM Atrial Rate : 092 BPM P-R Int : 148 ms QRS Dur : 100 ms QT Int : 356 ms P-R-T Axes : 000 128 163 degrees QTc Int : 440 ms Normal sinus rhythm Left posterior fascicular block Abnormal ECG When compared with ECG of 14-FEB-2017 16:25, Left posterior fascicular block is now Present Confirmed by Rubin Shields ([id number]) on 08/01/2021 2:15:52 PM Referred By: Confirmed By:Rubin Shields
[2021-08-01] MEDS ORDERED: ALBUTEROL HFA 8 GM INHALER INH PRN (14:41)
[2021-08-01] MEDS: ENOXAPARIN INJ 40 MG/0.4 ML SYR SQ SCH (18:46)
[2021-08-01] MEDS: cloNIDine HCL 0.1 MG TAB PO SCH (21:39)
[2021-08-01] MEDS: TOPIRAMATE 25 MG TAB PO SCH (21:40)
[2021-08-01 22:11] LABS: Appearance Urine Cloudy (Clear); Bacteria Urine Automated Negative (Negative); Bilirubin Urine Negative (Negative); Blood Urine Trace (Negative); Color Urine Dark Yellow; Epithelial Cell Urine Auto >30 /lpf (0-5); Glucose Urine UA Negative (Negative); Ketones Urine Trace (Negative); Leukocyte Esterase Urine Negative (Negative); Nitrite Urine Negative (Negative); Protein Urine 1+ (Negative); RBC Urine Automated 0-4 /hpf (0-4); Urobilinogen Urine Negative (Negative)
[2021-08-01] MEDS: traZODone HCL 50 MG TAB PO PRN (22:40)
[2021-08-02 06:30] LABS: Hematocrit (blood only) 47.5 % (42-52); Hemoglobin 16.6 g/dL (14.0-18.0); Mean Corpuscular Hemoglobin 31.7 pg (25-34); Mean Corpuscular Hgb Conc 34.9 g/dL (32-36); Mean Corpuscular Volume 90.8 fL (80-100); Mean Platelet Volume 9.4 fL (7.4-10.4); Platelet Count 226 K/uL (130-400); RDW Coefficient of Variation 13.1 % (11.5-14.5); RDW Standard Deviation 43.5 fL (36.4-46.3); Red Blood Count 5.23 M/uL (4.7-6.1); White Blood Count 9.48 K/uL (4.8-10.8)
[2021-08-02 06:47] LABS: Basophils # (auto) 0.02 K/uL (0-0.2); Basophils % (auto) 0.2 %; Immature Granulocytes # (auto) 0.06 K/uL (0.00-0.02); Immature Granulocytes % (auto) 0.6 %; Lymphocytes # (auto) 1.54 K/uL (1.2-3.4); Lymphocytes % (auto) 16.2 %; Monocytes % (auto) 7.4 %; Neutrophils # (auto) 7.16 K/uL (1.4-6.5); Neutrophils % (auto) 75.6 %
[2021-08-02 07:08] LABS: BUN Creatinine Ratio 18.7 (10-20); Calcium 8.8 mg/dl (8.5-10.1); Creatinine Clr Calc Pharmacy 174.4 ml/min; Est GFR (African American) 106.6 ml/min; Magnesium 2.7 mg/dl (1.8-2.4); Potassium 3.6 mmol/L (3.5-5.1)
[2021-08-02] MEDS: dexAMETHasone 6 MG in SYRINGE 0 ML IV SCH (07:14)
[2021-08-02] MEDS: lisinopril 40 MG TAB PO SCH (07:14)
[2021-08-02] MEDS ORDERED: FUROSEMIDE 40 MG/4 ML VIAL IV ONE (13:46)
[2021-08-02] MEDS ORDERED: CALCIUM CARBONATE 500 MG CHEWABLE TAB PO PRN (15:10)
[2021-08-02] MEDS: ENOXAPARIN INJ 40 MG/0.4 ML SYR SQ SCH (15:48)
[2021-08-02] MEDS: CALCIUM CARBONATE 500 MG CHEWABLE TAB PO PRN (16:04)
--- NOTE | 2021-08-02 16:09 | Hospitalist Progress Note ---
Date of Service August 02, 2021 Assessment & Plan (1) Pneumonia due to COVID-19 virus: Plan: -Patient is unvaccinated. -Patient presenting from home with reports of cough, fever, exertional shortness of breath, nausea, poor appetite x 10 days -In the ED, tested positive for COVID-19. -On admission saturating 90-93% at rest, hypoxic in the high 80s with ambulation -CTA chest negative for pulmonary embolism, show signs of viral pneumonia -S/p dexamethasone 10 mg IV in the ED, continue with dexamethasone 6 mg IV daily. Given duration of symptoms, patient does not meet criteria for remdesivir. Also given minimal oxygen requirement does not meet criteria for immunomodulator treatment at this time. -Lasix 40 mg IV x 1 received on admission -Continue supportive care with flutter valve, incentive spirometer, encourage self proning -Clinically a little better -We will give additional dose of Lasix of 60 mg IV today-monitor BMP and CRP tomorrow (2) Hypoxia: Plan: As above (3) HTN (hypertension): Plan: -BP controlled, continue lisinopril -Pressure remains on the upper side (4) Depression: Plan: -Continue home medications (5) DVT prophylaxis: Plan: -SQ Lovenox Admission and Anticipated Discharge Date Admission Date: August 01, 2021 Subjective 08/02/2021 The patient was seen and examined in Covid unit He has been feeling a little better but is still requiring high flow oxygen to maintain saturation Has cough without any phlegm Review of Systems Review of Systems: All systems reviewed and are unremarkable except as noted below Respiratory: Minimal shortness of breath at rest Physical Exam Physical Exam: Lying in bed with minimal shortness of breath Constitutional: well developed, well nourished and + morbidly obese Eyes: PERRL, conjunctivae normal, anicteric sclerae ENMT: external ear and nose normal, oropharynx normal Neck: trachea midline, no thyromegaly Respiratory: + respiratory distress (Minimal distress at rest) Auscultation: + diminished lung sounds; no crackles Cardiovascular: Rate/Rhythm: regular rate and regular rhythm Heart Sounds: normal S1 and normal S2; no murmur Extremities: + edema (1+ edema bi laterally) Gastrointestinal (Abdomen): Inspection/Auscultation: normal bowel sounds; abdomen not distended Percussion/Palpation: abdomen soft; abdomen nontender Musculoskeletal: No acute arthritis in any joint Neurologic: Alert, awake and oriented x3. No focal neuro deficit Lymphatic: no cervical or axillary lymphadenopathy Results & Data Results & Data ([facility]) Vital Signs (Past 12 Hours) Vital Signs Temp Pulse Resp BP Pulse Ox 08/02/21 15:45 36.4 C L 83 20 158/77 H 92 08/02/21 08:01 36.5 C 79 20 168/73 H 90 Laboratory Results Short CBC 08/02/21 Range/Units 06:00 WBC 9.48 (4.8-10.8) K/uL Hgb 16.6 (14.0-18.0) g/dL Hct 47.5 (42-52) % Plt Count 226 (130-400) K/uL BMP 08/02/21 06:00 Sodium 135 L Potassium 3.6 Chloride 105 Carbon Dioxide 19 L BUN 19 H Creatinine 1.01 Glucose 151 H Calcium 8.8 Urine 08/01/21 Range/Units 21:50 Urine Color Dark Yellow Urine Appearance Cloudy A (Clear) Urine pH 6.0 (4.5-7.5) Ur Specific [place] 1.030 (1.000-1.030) Urine Protein 1+ H (Negative) Urine Glucose (UA) Negative (Negative) Medications Administered Current Inpatient Medications Acetaminophen (Acetaminophen 325 Mg Tab) 650 mg PO Q4H PRN PRN Reason: pain/fever Stop: 08/31/21 14:40 Albuterol (Albuterol Hfa 8 Gm Inhaler) 2 puffs INH Q4H PRN PRN Reason: shorntess of breath Stop: 08/31/21 14:40 Calcium Carbonate (Calcium Carbonate 500 Mg Chewable Tab) 1,000 mg PO Q6H PRN PRN Reason: Indigestion Stop: 09/01/21 15:50 Last Admin: 08/02/21 16:04 Dose: 1,000 mg Documented by: Clonidine HCl (Clonidine Hcl 0.1 Mg Tab) 0.1 mg PO HS [facility] Stop: 08/31/21 20:59 Last Admin: 08/01/21 21:39 Dose: 0.1 mg Documented by: Enoxaparin Sodium (Enoxaparin Inj 40 Mg/0.4 Ml Syr) 40 mg SQ Q24H [facility] Stop: 08/31/21 14:59 Last Admin: 08/02/21 15:48 Dose: 40 mg Documented by: Dexamethasone 6 mg/ Syringe 1.5 mls @ 1 mls/min IV DAILY [facility] Stop: 08/12/21 08:59 Last Admin: 08/02/21 07:14 Dose: 1 mls/min Documented by: Lisinopril (Lisinopril 40 Mg Tab) 40 mg PO QAM [facility] Stop: 09/01/21 08:59 Last Admin: 08/02/21 07:14 Dose: 40 mg Documented by: Miscellaneous (Vyvanse~Order Awaiting Action) 1 ea N/A QS [facility] Stop: 08/31/21 15:59 Last Admin: 08/02/21 15:49 Dose: Not Given Documented by: Miscellaneous (Vortioxetine [Trintellix] 20 Mg Tablet~Order Awaiting Action) 1 ea N/A QS [facility] Stop: 08/31/21 15:59 Last Admin: 08/02/21 15:49 Dose: Not Given Documented by: Topiramate (Topiramate 25 Mg Tab) 75 mg PO HS [facility] Stop: 08/31/21 20:59 Last Admin: 08/01/21 21:40 Dose: 75 mg Documented by: Trazodone HCl (Trazodone Hcl 50 Mg Tab) 50 mg PO HS PRN PRN Reason: insomnia Stop: 09/01/21 20:59 Last Admin: 08/01/21 22:40 Dose: 50 mg Documented by:
[2021-08-02] MEDS: cloNIDine HCL 0.1 MG TAB PO SCH (20:39)
[2021-08-02] MEDS: traZODone HCL 50 MG TAB PO PRN (20:39)
[2021-08-02] MEDS: TOPIRAMATE 25 MG TAB PO SCH (20:40)
[2021-08-02] MEDS: ACETAMINOPHEN 325 MG TAB PO PRN (22:25)
[2021-08-03 06:50] LABS: BUN Creatinine Ratio 20.1 (10-20); Calcium 8.5 mg/dl (8.5-10.1); Creatinine Clr Calc Pharmacy 183.5 ml/min; Est GFR (African American) 113.3 ml/min; Est GFR (Non-African American) 97.8 ml/min; Potassium 3.5 mmol/L (3.5-5.1)
[2021-08-03 06:51] LABS: C Reactive Protein 7.93 mg/dl (0-0.29)
[2021-08-03] MEDS: dexAMETHasone 6 MG in SYRINGE 0 ML IV SCH (07:49)
[2021-08-03] MEDS: VORTIOXETINE HYDROBROMIDE 20 MG PO SCH (07:50)
[2021-08-03] MEDS: lisinopril 40 MG TAB PO SCH (07:50)
[2021-08-03] MEDS: CALCIUM CARBONATE 500 MG CHEWABLE TAB PO PRN (07:52)
[2021-08-03] MEDS: ACETAMINOPHEN 325 MG TAB PO PRN (12:27)
[2021-08-03] MEDS: PANTOprazole 40 MG TAB PO SCH (13:48)
[2021-08-03] MEDS ORDERED: FUROSEMIDE 40 MG/4 ML VIAL IV ONE (16:10)
--- NOTE | 2021-08-03 16:13 | Hospitalist Progress Note ---
Date of Service August 03, 2021 Assessment & Plan (1) Pneumonia due to COVID-19 virus: Plan: -Patient is unvaccinated. -Patient presenting from home with reports of cough, fever, exertional shortness of breath, nausea, poor appetite x 10 days -In the ED, tested positive for COVID-19. -On admission saturating 90-93% at rest, hypoxic in the high 80s with ambulation -CTA chest negative for pulmonary embolism, show signs of viral pneumonia -S/p dexamethasone 10 mg IV in the ED, continue with dexamethasone 6 mg IV daily. Given duration of symptoms, patient does not meet criteria for remdesivir. Also given minimal oxygen requirement does not meet criteria for immunomodulator treatment at this time. -Lasix 40 mg IV x 1 received on admission -Continue supportive care with flutter valve, incentive spirometer, encourage self proning -Clinically a little better -We will give additional dose of Lasix of 60 mg IV today-monitor BMP and CRP tomorrow -Clinically not any better and still requiring 3 L of oxygen to maintain saturation -We will give another dose of Lasix of 60 mg intravenously today -CRP is better at 7.93 today from 11.10 on admission (2) Hypoxia: Plan: As above (3) HTN (hypertension): Plan: -BP controlled, continue lisinopril -Pressure remains on the upper side (4) Depression: Plan: -Continue home medications (5) DVT prophylaxis: Plan: -SQ Lovenox Admission and Anticipated Discharge Date Admission Date: August 01, 2021 Subjective 08/02/2021 The patient was seen and examined in Covid unit He has been feeling a little better but is still requiring high flow oxygen to maintain saturation Has cough without any phlegm 08/03/2021 The patient was seen and examined in Covid unit He has been complaining of shortness of breath with minimal exertion Has cough Has been requiring 3 L of oxygen through CPAP to maintain saturation Review of Systems Review of Systems: All systems reviewed and are unremarkable except as noted below Respiratory: Minimal shortness of breath at rest Physical Exam Physical Exam: Lying in bed with minimal shortness of breath Constitutional: well developed, well nourished and + morbidly obese Eyes: PERRL, conjunctivae normal, anicteric sclerae ENMT: external ear and nose normal, oropharynx normal Neck: trachea midline, no thyromegaly Respiratory: + respiratory distress (Minimal distress at rest) Auscultation: + diminished lung sounds; no crackles Cardiovascular: Rate/Rhythm: regular rate and regular rhythm Heart Sounds: normal S1 and normal S2; no murmur Extremities: + edema (1+ edema bilaterally) Gastrointestinal (Abdomen): Inspection/Auscultation: normal bowel sounds; abdomen not distended Percussion/Palpation: abdomen soft; abdomen nontender Musculoskeletal: No acute arthritis in any joint Neurologic: Alert, awake and oriented x3. Generally weak Lymphatic: no cervical or axillary lymphadenopathy Results & Data Results & Data ([facility]) Vital Signs (Past 12 Hours) Vital Signs Temp Pulse Resp BP Pulse Ox 08/03/21 15:19 37.1 C 78 20 148/72 H 93 08/03/21 07:56 37.3 C 08/03/21 07:25 38.2 C H 92 H 20 144/75 H 95 Laboratory Results BMP 08/03/21 05:46 Sodium 134 L Potassium 3.5 Chloride 102 Carbon Dioxide 25 BUN 19 H Creatinine 0.96 Glucose 116 H Calcium 8.5 Medications Administered Current Inpatient Medications Acetaminophen (Acetaminophen 325 Mg Tab) 650 mg PO Q4H PRN PRN Reason: pain/fever Stop: 08/31/21 14:40 Last Admin: 08/03/21 12:27 Dose: 650 mg Documented by: Albuterol (Albuterol Hfa 8 Gm Inhaler) 2 puffs INH Q4H PRN PRN Reason: shorntess of breath Stop: 08/31/21 14:40 Calcium Carbonate (Calcium Carbonate 500 Mg Chewable Tab) 1,000 mg PO Q6H PRN PRN Reason: Indigestion Stop: 09/01/21 15:50 Last Admin: 08/03/21 07:52 Dose: 1,000 mg Documented by: Clonidine HCl (Clonidine Hcl 0.1 Mg Tab) 0.1 mg PO HS [facility] Stop: 08/31/21 20:59 Last Admin: 08/02/21 20:39 Dose: 0.1 mg Documented by: Enoxaparin Sodium (Enoxaparin Inj 40 Mg/0.4 Ml Syr) 40 mg SQ Q24H [facility] Stop: 08/31/21 14:59 Last Admin: 08/02/21 15:48 Dose: 40 mg Documented by: Dexamethasone 6 mg/ Syringe 1.5 mls @ 1 mls/min IV DAILY [facility] Stop: 08/12/21 08:59 Last Admin: 08/03/21 07:49 Dose: 1 mls/min Documented by: Lisinopril (Lisinopril 40 Mg Tab) 40 mg PO QAM [facility] Stop: 09/01/21 08:59 Last Admin: 08/03/21 07:50 Dose: 40 mg Documented by: Miscellaneous (Vyvanse~Order Awaiting Action) 1 ea N/A QS [facility] Stop: 08/31/21 15:59 Last Admin: 08/03/21 07:51 Dose: Not Given Documented by: Pantoprazole Sodium (Pantoprazole 40 Mg Tab) 40 mg PO QAM [facility] Stop: 08/07/21 12:59 Last Admin: 08/03/21 13:48 Dose: 40 mg Documented by: Topiramate (Topiramate 25 Mg Tab) 75 mg PO HS [facility] Stop: 08/31/21 20:59 Last Admin: 08/02/21 20:40 Dose: 75 mg Documented by: Trazodone HCl (Trazodone Hcl 50 Mg Tab) 50 mg PO HS PRN PRN Reason: insomnia Stop: 09/01/21 20:59 Last Admin: 08/02/21 20:39 Dose: 50 mg Documented by: Vortioxetine (Vortioxetine Hydrobromide 20 Mg) 1 ea PO DAILY [facility] Stop: 09/02/21 08:59 Last Admin: 08/03/21 07:50 Dose: 1 ea Documented by:
[2021-08-03] MEDS: ENOXAPARIN INJ 40 MG/0.4 ML SYR SQ SCH (16:29)
[2021-08-03] MEDS: traZODone HCL 50 MG TAB PO PRN (21:28)
[2021-08-03] MEDS: TOPIRAMATE 25 MG TAB PO SCH (21:28)
[2021-08-03] MEDS: cloNIDine HCL 0.1 MG TAB PO SCH (21:28)
[2021-08-04 07:37] LABS: BUN Creatinine Ratio 23.3 (10-20); Calcium 8.5 mg/dl (8.5-10.1); Creatinine Clr Calc Pharmacy 204.8 ml/min; Est GFR (African American) 124.8 ml/min; Est GFR (Non-African American) 107.7 ml/min; Magnesium 2.6 mg/dl (1.8-2.4); Potassium 3.4 mmol/L (3.5-5.1)
[2021-08-04] MEDS ORDERED: POTASSIUM CHLORIDE CRTAB 20 MEQ TABCR PO STA (08:41)
[2021-08-04] MEDS: dexAMETHasone 6 MG in SYRINGE 0 ML IV SCH (10:09)
[2021-08-04] MEDS: lisinopril 40 MG TAB PO SCH (10:09)
[2021-08-04] MEDS: PANTOprazole 40 MG TAB PO SCH (10:09)
[2021-08-04] MEDS: VORTIOXETINE HYDROBROMIDE 20 MG PO SCH (10:11)
[2021-08-04] MEDS: ACETAMINOPHEN 325 MG TAB PO PRN ×2 (10:18→22:42)
[2021-08-04] MEDS ORDERED: FUROSEMIDE 40 MG/4 ML VIAL IV ONE (15:48)
--- NOTE | 2021-08-04 15:52 | Hospitalist Progress Note ---
Date of Service August 04, 2021 Assessment & Plan (1) Pneumonia due to COVID-19 virus: Plan: -Patient is unvaccinated. -Patient presenting from home with reports of cough, fever, exertional shortness of breath, nausea, poor appetite x 10 days -In the ED, tested positive for COVID-19. -On admission saturating 90-93% at rest, hypoxic in the high 80s with ambulation -CTA chest negative for pulmonary embolism, show signs of viral pneumonia -S/p dexamethasone 10 mg IV in the ED, continue with dexamethasone 6 mg IV daily. Given duration of symptoms, patient does not meet criteria for remdesivir. Also given minimal oxygen requirement does not meet criteria for immunomodulator treatment at this time. -Lasix 40 mg IV x 1 received on admission -Continue supportive care with flutter valve, incentive spirometer, encourage self proning -Clinically a little better -We will give additional dose of Lasix of 60 mg IV today-monitor BMP and CRP tomorrow -Clinically not any better and still requiring 3 L of oxygen to maintain saturation -We will give another dose of Lasix of 60 mg intravenously today -CRP is better at 7.93 today from 11.10 on admission -Clinically a little better but is still requiring 3 L oxygen to maintain saturation and is requiring BiPAP -We will give another dose of Lasix of 40 mg IV today (2) Hypoxia: Plan: As above (3) HTN (hypertension): Plan: -BP controlled, continue lisinopril -Pressure remains on the upper side (4) Depression: Plan: -Continue home medications (5) DVT prophylaxis: Plan: -SQ Lovenox Admission and Anticipated Discharge Date Admission Date: August 01, 2021 Subjective 08/02/2021 The patient was seen and examined in Covid unit He has been feeling a little better but is still requiring high flow oxygen to maintain saturation Has cough without any phlegm 08/03/2021 The patient was seen and examined in Covid unit He has been complaining of shortness of breath with minimal exertion Has cough Has been requiring 3 L of oxygen through CPAP to maintain saturation 08/04/2021 The patient was seen and examined in Covid unit He has been feeling a little better but is still requiring 3 L to maintain saturation He gets short of breath with minimal exertion Review of Systems Review of Systems: All systems reviewed and are unremarkable except as noted below Respiratory: Minimal shortness of breath at rest Physical Exam Physical Exam: Lying in bed with minimal shortness of breath with BiPAP Constitutional: well developed, well nourished and + morbidly obese Eyes: PERRL, conjunctivae normal, anicteric sclerae ENMT: external ear and nose normal, oropharynx normal Neck: trachea midline, no thyromegaly Respiratory: + respiratory distress (Minimal distress at rest) Auscultation: + diminished lung sounds; no crackles Cardiovascular: Rate/Rhythm: regular rate and regular rhythm Heart Sounds: normal S1 and normal S2; no murmur Extremities: + edema (1+ edema bilaterally) Gastrointestinal (Abdomen): Inspection/Auscultation: normal bowel sounds; abdomen not distended Percussion/Palpation: abdomen soft; abdomen nontender Musculoskeletal: No acute arthritis in any joint Neurologic: Alert, awake and oriented x3. No focal sensory and motor deficit appreciated Lymphatic: no cervical or axillary lymphadenopathy Results & Data Results & Data ([facility]) Vital Signs (Past 12 Hours) Vital Signs Temp Pulse Resp BP Pulse Ox 08/04/21 15:11 36.5 C 73 20 144/73 H 94 08/04/21 07:28 36.1 C L 77 20 136/82 92 Laboratory Results BMP 08/04/21 06:15 Sodium 136 Potassium 3.4 L Chloride 103 Carbon Dioxide 27 BUN 20 H Creatinine 0.86 Glucose 121 H Calcium 8.5 Medications Administered Current Inpatient Medications Acetaminophen (Acetaminophen 325 Mg Tab) 650 mg PO Q4H PRN PRN Reason: pain/fever Stop: 08/31/21 14:40 Last Admin: 08/04/21 10:18 Dose: 650 mg Documented by: Albuterol (Albuterol Hfa 8 Gm Inhaler) 2 puffs INH Q4H PRN PRN Reason: shorntess of breath Stop: 08/31/21 14:40 Calcium Carbonate (Calcium Carbonate 500 Mg Chewable Tab) 1,000 mg PO Q6H PRN PRN Reason: Indigestion Stop: 09/01/21 15:50 Last Admin: 08/03/21 07:52 Dose: 1,000 mg Documented by: Clonidine HCl (Clonidine Hcl 0.1 Mg Tab) 0.1 mg PO HS [facility] Stop: 08/31/21 20:59 Last Admin: 08/03/21 21:28 Dose: 0.1 mg Documented by: Enoxaparin Sodium (Enoxaparin Inj 40 Mg/0.4 Ml Syr) 40 mg SQ Q24H [facility] Stop: 08/31/21 14:59 Last Admin: 08/03/21 16:29 Dose: 40 mg Documented by: Dexamethasone 6 mg/ Syringe 1.5 mls @ 1 mls/min IV DAILY [facility] Stop: 08/12/21 08:59 Last Admin: 08/04/21 10:09 Dose: 1 mls/min Documented by: Lisinopril (Lisinopril 40 Mg Tab) 40 mg PO QAM [facility] Stop: 09/01/21 08:59 Last Admin: 08/04/21 10:09 Dose: 40 mg Documented by: Miscellaneous (Vyvanse~Order Awaiting Action) 1 ea N/A QS [facility] Stop: 08/31/21 15:59 Last Admin: 08/04/21 10:10 Dose: Not Given Documented by: Pantoprazole Sodium (Pantoprazole 40 Mg Tab) 40 mg PO QAM [facility] Stop: 08/07/21 12:59 Last Admin: 08/04/21 10:09 Dose: 40 mg Documented by: Topiramate (Topiramate 25 Mg Tab) 75 mg PO HS [facility] Stop: 08/31/21 20:59 Last Admin: 08/03/21 21:28 Dose: 75 mg Documented by: Trazodone HCl (Trazodone Hcl 50 Mg Tab) 50 mg PO HS PRN PRN Reason: insomnia Stop: 09/01/21 20:59 Last Admin: 08/03/21 21:28 Dose: 50 mg Documented by: Vortioxetine (Vortioxetine Hydrobromide 20 Mg) 1 ea PO DAILY [facility] Stop: 09/02/21 08:59 Last Admin: 08/04/21 10:11 Dose: 1 ea Documented by:
[2021-08-04] MEDS: ENOXAPARIN INJ 40 MG/0.4 ML SYR SQ SCH (16:38)
[2021-08-04] MEDS: TOPIRAMATE 25 MG TAB PO SCH (20:16)
[2021-08-04] MEDS: cloNIDine HCL 0.1 MG TAB PO SCH (20:16)
[2021-08-04] MEDS: traZODone HCL 50 MG TAB PO PRN (20:16)
[2021-08-05 07:23] LABS: BUN Creatinine Ratio 28.9 (10-20); Calcium 8.2 mg/dl (8.5-10.1); Est GFR (African American) 132.8 ml/min; Est GFR (Non-African American) 114.6 ml/min; Potassium 3.3 mmol/L (3.5-5.1)
[2021-08-05] MEDS ORDERED: POTASSIUM CHLORIDE CRTAB 20 MEQ TABCR PO STA ×2 (08:21→11:27)
[2021-08-05] MEDS: dexAMETHasone 6 MG in SYRINGE 0 ML IV SCH (08:34)
[2021-08-05] MEDS: lisinopril 40 MG TAB PO SCH (08:34)
[2021-08-05] MEDS: PANTOprazole 40 MG TAB PO SCH (08:34)
[2021-08-05] MEDS: VORTIOXETINE HYDROBROMIDE 20 MG PO SCH (08:35)
[2021-08-05] MEDS ORDERED: FUROSEMIDE 40 MG/4 ML VIAL IV ONE (11:27)
[2021-08-05] MEDS: ENOXAPARIN INJ 40 MG/0.4 ML SYR SQ SCH (14:28)
--- NOTE | 2021-08-05 14:59 | Hospitalist Progress Note ---
Date of Service August 05, 2021 Assessment & Plan (1) Pneumonia due to COVID-19 virus: Plan: -Patient is unvaccinated. -Patient presenting from home with reports of cough, fever, exertional shortness of breath, nausea, poor appetite x 10 days -In the ED, tested positive for COVID-19. -On admission saturating 90-93% at rest, hypoxic in the high 80s with ambulation -CTA chest negative for pulmonary embolism, show signs of viral pneumonia -S/p dexamethasone 10 mg IV in the ED, continue with dexamethasone 6 mg IV daily. Given duration of symptoms, patient does not meet criteria for remdesivir. Also given minimal oxygen requirement does not meet criteria for immunomodulator treatment at this time. -Lasix 40 mg IV x 1 received on admission -Continue supportive care with flutter valve, incentive spirometer, encourage self proning -Clinically a little better -We will give additional dose of Lasix of 60 mg IV today-monitor BMP and CRP tomorrow -Clinically not any better and still requiring 3 L of oxygen to maintain saturation -We will give another dose of Lasix of 60 mg intravenously today -CRP is better at 7.93 today from 11.10 on admission -Clinically a little better but is still requiring 3 L oxygen to maintain saturation and is requiring BiPAP -No change clinically but the patient wants to go home -We will get PT and OT evaluation and another dose of 40 mg Lasix IV today -We will get 2 step O2 saturation test tomorrow and decide about sending home (2) Hypoxia: Plan: As above (3) HTN (hypertension): Plan: -BP controlled, continue lisinopril -Pressure remains on the upper side (4) Depression: Plan: -Continue home medications (5) DVT prophylaxis: Plan: -SQ Lovenox Admission and Anticipated Discharge Date Admission Date: August 01, 2021 Subjective 08/02/2021 The patient was seen and examined in Covid unit He has been feeling a little better but is still requiring high flow oxygen to maintain saturation Has cough without any phlegm 08/03/2021 The patient was seen and examined in Covid unit He has been complaining of shortness of breath with minimal exertion Has cough Has been requiring 3 L of oxygen through CPAP to maintain saturation 08/04/2021 The patient was seen and examined in Covid unit He has been feeling a little better but is still requiring 3 L to maintain saturation He gets short of breath with minimal exertion 08/05/2021 The patient was seen and examined in Covid unit He remains stable and is still requiring 3 L oxygen through BIPAP to maintain saturation He has been generally weak and complains to have cough without any phlegm Review of Systems Review of Systems: All systems reviewed and are unremarkable except as noted below Respiratory: Minimal shortness of breath at rest Physical Exam Physical Exam: Lying in bed with minimal shortness of breath with BiPAP Constitutional: well developed, well nourished and + morbidly obese Eyes: PERRL, conjunctivae normal, anicteric sclerae ENMT: external ear and nose normal, oropharynx normal Neck: trachea midline, no thyromegaly Respiratory: + respiratory distress (Minimal distress at rest) Auscultation: + diminished lung sounds; no crackles Cardiovascular: Rate/Rhythm: regular rate and regular rhythm Heart Sounds: normal S1 and normal S2; no murmur Extremities: + edema (1+ edema bilaterally) Gastrointestinal (Abdomen): Inspection/Auscultation: normal bowel sounds; abdomen not distended Percussion/Palpation: abdomen soft; abdomen nontender Musculoskeletal: No acute arthritis in any joint Neurologic: Alert, awake and oriented x3. No focal sensory and motor deficit appreciated Lymphatic: no cervical or axillary lymphadenopathy Results & Data Results & Data ([facility]) Vital Signs (Past 12 Hours) Vital Signs Temp Pulse Resp BP Pulse Ox 08/05/21 14:49 36.5 C 78 20 158/79 H 96 08/05/21 07:25 36.7 C 63 18 135/80 91 Laboratory Results [facility] 08/05/21 06:05 Sodium 136 Potassium 3.3 L Chloride 104 Carbon Dioxide 23 BUN 21 H Creatinine 0.74 Glucose 128 H Calcium 8.2 L Medications Administered Current Inpatient Medications Acetaminophen (Acetaminophen 325 Mg Tab) 650 mg PO Q4H PRN PRN Reason: pain/fever Stop: 08/31/21 14:40 Last Admin: 08/04/21 22:42 Dose: 650 mg Documented by: Albuterol (Albuterol Hfa 8 Gm Inhaler) 2 puffs INH Q4H PRN PRN Reason: shorntess of breath Stop: 08/31/21 14:40 Calcium Carbonate (Calcium Carbonate 500 Mg Chewable Tab) 1,000 mg PO Q6H PRN PRN Reason: Indigestion Stop: 09/01/21 15:50 Last Admin: 08/03/21 07:52 Dose: 1,000 mg Documented by: Clonidine HCl (Clonidine Hcl 0.1 Mg Tab) 0.1 mg PO HS [facility] Stop: 08/31/21 20:59 Last Admin: 08/04/21 20:16 Dose: 0.1 mg Documented by: Enoxaparin Sodium (Enoxaparin Inj 40 Mg/0.4 Ml Syr) 40 mg SQ Q24H [facility] Stop: 08/31/21 14:59 Last Admin: 08/05/21 14:28 Dose: 40 mg Documented by: Dexamethasone 6 mg/ Syringe 1.5 mls @ 1 mls/min IV DAILY [facility] Stop: 08/12/21 08:59 Last Admin: 08/05/21 08:34 Dose: 1 mls/min Documented by: Lisinopril (Lisinopril 40 Mg Tab) 40 mg PO QAM [facility] Stop: 09/01/21 08:59 Last Admin: 08/05/21 08:34 Dose: 40 mg Documented by: Miscellaneous (Vyvanse~Order Awaiting Action) 1 ea N/A QS [facility] Stop: 08/31/21 15:59 Last Admin: 08/05/21 14:28 Dose: Not Given Documented by: Pantoprazole Sodium (Pantoprazole 40 Mg Tab) 40 mg PO QAM [facility] Stop: 08/07/21 12:59 Last Admin: 08/05/21 08:34 Dose: 40 mg Documented by: Topiramate (Topiramate 25 Mg Tab) 75 mg PO HS [facility] Stop: 08/31/21 20:59 Last Admin: 08/04/21 20:16 Dose: 75 mg Documented by: Trazodone HCl (Trazodone Hcl 50 Mg Tab) 50 mg PO HS PRN PRN Reason: insomnia Stop: 09/01/21 20:59 Last Admin: 08/04/21 20:16 Dose: 50 mg Documented by: Vortioxetine (Vortioxetine Hydrobromide 20 Mg) 1 ea PO DAILY [facility] Stop: 09/02/21 08:59 Last Admin: 08/05/21 08:35 Dose: 1 ea Documented by:
[2021-08-05] MEDS: traZODone HCL 50 MG TAB PO PRN (21:42)
[2021-08-05] MEDS: TOPIRAMATE 25 MG TAB PO SCH (21:42)
[2021-08-05] MEDS: ACETAMINOPHEN 325 MG TAB PO PRN (21:42)
[2021-08-05] MEDS: cloNIDine HCL 0.1 MG TAB PO SCH (21:43)
[2021-08-06] MEDS: lisinopril 40 MG TAB PO SCH (08:12)
[2021-08-06] MEDS: PANTOprazole 40 MG TAB PO SCH (08:12)
[2021-08-06] MEDS: VORTIOXETINE HYDROBROMIDE 20 MG PO SCH (08:14)
[2021-08-06] MEDS: dexAMETHasone 6 MG in SYRINGE 0 ML IV SCH (08:16)
[2021-08-06 09:55] LABS: BUN Creatinine Ratio 28.2 (10-20); Calcium 8.3 mg/dl (8.5-10.1); Creatinine Clr Calc Pharmacy 220.2 ml/min; Est GFR (African American) 128.6 ml/min; Potassium 3.6 mmol/L (3.5-5.1)
[2021-08-06] MEDS ORDERED: POTASSIUM CHLORIDE CRTAB 20 MEQ TABCR PO STA (11:01)
[2021-08-06] MEDS ORDERED: FUROSEMIDE 40 MG/4 ML VIAL IV ONE (11:01)
--- NOTE | 2021-08-06 12:51 | Hospitalist Progress Note ---
Date of Service August 06, 2021 Assessment & Plan (1) Pneumonia due to COVID-19 virus: Plan: -Patient is unvaccinated. -Patient presenting from home with reports of cough, fever, exertional shortness of breath, nausea, poor appetite x 10 days -In the ED, tested positive for COVID-19. -On admission saturating 90-93% at rest, hypoxic in the high 80s with ambulation -CTA chest negative for pulmonary embolism, show signs of viral pneumonia -S/p dexamethasone 10 mg IV in the ED, continue with dexamethasone 6 mg IV daily. Given duration of symptoms, patient does not meet criteria for remdesivir. Also given minimal oxygen requirement does not meet criteria for immunomodulator treatment at this time. -Lasix 40 mg IV x 1 received on admission -Continue supportive care with flutter valve, incentive spirometer, encourage self proning -Clinically a little better -We will give additional dose of Lasix of 60 mg IV today-monitor BMP and CRP tomorrow -Clinically not any better and still requiring 3 L of oxygen to maintain saturation -We will give another dose of Lasix of 60 mg intravenously today -CRP is better at 7.93 today from 11.10 on admission -Clinically a little better but is still requiring 3 L oxygen to maintain saturation and is requiring BiPAP -No change clinically but the patient wants to go home -We will get PT and OT evaluation and another dose of 40 mg Lasix IV today -Not yet ready to be discharged as he is getting very short of breath with m inimal exertion and weakness -We will give 80 of intravenous Lasix today with potassium supplement (2) Hypoxia: Plan: As above (3) HTN (hypertension): Plan: -BP controlled, continue lisinopril -Pressure remains on the upper side (4) Depression: Plan: -Continue home medications (5) DVT prophylaxis: Plan: -SQ Lovenox Admission and Anticipated Discharge Date Admission Date: August 01, 2021 Subjective 08/02/2021 The patient was seen and examined in Covid unit He has been feeling a little better but is still requiring high flow oxygen to maintain saturation Has cough without any phlegm 08/03/2021 The patient was seen and examined in Covid unit He has been complaining of shortness of breath with minimal exertion Has cough Has been requiring 3 L of oxygen through CPAP to maintain saturation 08/04/2021 The patient was seen and examined in Covid unit He has been feeling a little better but is still requiring 3 L to maintain saturation He gets short of breath with minimal exertion 08/05/2021 The patient was seen and examined in Covid unit He remains stable and is still requiring 3 L oxygen through BIPAP to maintain saturation He has been generally weak and complains to have cough without any phlegm 08/06/2021 The patient was seen and examined in Covid unit He has been stable in bed and is still requiring 3 L of oxygen to maintain saturation He gets very short of breath with minimal exertion Has to have PT and OT evaluation and to a step O2 saturation before discharge Review of Systems Review of Systems: All systems reviewed and are unremarkable except as noted below Respiratory: Minimal shortness of breath at rest Physical Exam Physical Exam: Lying in bed with minimal shortness of breath with BiPAP Constitutional: well developed, well nourished and + morbidly obese Eyes: PERRL, conjunctivae normal, anicteric sclerae ENMT: external ear and nose normal, oropharynx normal Neck: trachea midline, no thyromegaly Respiratory: + respiratory distress (Minimal distress at rest) Auscultation: + diminished lung sounds; no crackles Cardiovascular: Rate/Rhythm: regular rate and regular rhythm Heart Sounds: normal S1 and normal S2; no murmur Extremities: + edema (1+ edema bilaterally) Gastrointestinal (Abdomen): Inspection/Auscultation: normal bowel sounds; abdomen not distended Percussion/Palpation: abdomen soft; abdomen nontender Musculoskeletal: No acute arthritis in any joint Neurologic: Alert, awake and oriented x3 Lymphatic: no cervical or axillary lymphadenopathy Results & Data Results & Data ([facility]) Vital Signs (Past 12 Hours) Vital Signs Temp Pulse Resp BP Pulse Ox 08/06/21 09:58 36.8 C 80 18 134/81 95 08/06/21 07:00 36.8 C 80 18 134/81 95 Laboratory Results BMP 08/06/21 09:18 Sodium 136 Potassium 3.6 Chloride 106 Carbon Dioxide 22 BUN 23 H Creatinine 0.80 Glucose 139 H Calcium 8.3 L Medications Administered Current Inpatient Medications Acetaminophen (Acetaminophen 325 Mg Tab) 650 mg PO Q4H PRN PRN Reason: pain/fever Stop: 08/31/21 14:40 Last Admin: 08/05/21 21:42 Dose: 650 mg Documented by: Albuterol (Albuterol Hfa 8 Gm Inhaler) 2 puffs INH Q4H PRN PRN Reason: shorntess of breath Stop: 08/31/21 14:40 Calcium Carbonate (Calcium Carbonate 500 Mg Chewable Tab) 1,000 mg PO Q6H PRN PRN Reason: Indigestion Stop: 09/01/21 15:50 Last Admin: 08/03/21 07:52 Dose: 1,000 mg Documented by: Clonidine HCl (Clonidine Hcl 0.1 Mg Tab) 0.1 mg PO HS [facility] Stop: 08/31/21 20:59 Last Admin: 08/05/21 21:43 Dose: 0.1 mg Documented by: Enoxaparin Sodium (Enoxaparin Inj 40 Mg/0.4 Ml Syr) 40 mg SQ Q24H [facility] Stop: 08/31/21 14:59 Last Admin: 08/05/21 14:28 Dose: 40 mg Documented by: Dexamethasone 6 mg/ Syringe 1.5 mls @ 1 mls/min IV DAILY [facility] Stop: 08/12/21 08:59 Last Admin: 08/06/21 08:16 Dose: 1 mls/min Documented by: Lisinopril (Lisinopril 40 Mg Tab) 40 mg PO QAM [facility] Stop: 09/01/21 08:59 Last Admin: 08/06/21 08:12 Dose: 40 mg Documented by: Miscellaneous (Vyvanse~Order Awaiting Action) 1 ea N/A QS [facility] Stop: 08/31/21 15:59 Last Admin: 08/06/21 08:09 Dose: Not Given Documented by: Pantoprazole Sodium (Pantoprazole 40 Mg Tab) 40 mg PO QAM [facility] Stop: 08/07/21 12:59 Last Admin: 08/06/21 08:12 Dose: 40 mg Documented by: Topiramate (Topiramate 25 Mg Tab) 75 mg PO HS [facility] Stop: 08/31/21 20:59 Last Admin: 08/05/21 21:42 Dose: 75 mg Documented by: Trazodone HCl (Trazodone Hcl 50 Mg Tab) 50 mg PO HS PRN PRN Reason: insomnia Stop: 09/01/21 20:59 Last Admin: 08/05/21 21:42 Dose: 50 mg Documented by: Vortioxetine (Vortioxetine Hydrobromide 20 Mg) 1 ea PO DAILY [facility] Stop: 09/02/21 08:59 Last Admin: 08/06/21 08:14 Dose: 1 ea Documented by:
[2021-08-06] MEDS: ENOXAPARIN INJ 40 MG/0.4 ML SYR SQ SCH (15:05)
[2021-08-06] MEDS: TOPIRAMATE 25 MG TAB PO SCH (22:24)
[2021-08-06] MEDS: cloNIDine HCL 0.1 MG TAB PO SCH (22:24)
[2021-08-06] MEDS: traZODone HCL 50 MG TAB PO PRN (22:24)
[2021-08-07] MEDS: dexAMETHasone 6 MG in SYRINGE 0 ML IV SCH (08:27)
[2021-08-07] MEDS: VORTIOXETINE HYDROBROMIDE 20 MG PO SCH (08:39)
[2021-08-07] MEDS: PANTOprazole 40 MG TAB PO SCH (08:41)
[2021-08-07] MEDS: lisinopril 40 MG TAB PO SCH (08:41)
[2021-08-07] MEDS: ACETAMINOPHEN 325 MG TAB PO PRN ×2 (10:06→21:14)
[2021-08-07 10:18] LABS: Calcium 8.8 mg/dl (8.5-10.1); Creatinine Clr Calc Pharmacy 202.5 ml/min; Est GFR (African American) 124.2 ml/min; Est GFR (Non-African American) 107.2 ml/min; Magnesium 2.4 mg/dl (1.8-2.4); Potassium 3.8 mmol/L (3.5-5.1)
[2021-08-07] MEDS ORDERED: FUROSEMIDE 40 MG/4 ML VIAL IV ONE (12:52)
--- NOTE | 2021-08-07 13:38 | Hospitalist Progress Note ---
Date of Service August 07, 2021 Assessment & Plan (1) Pneumonia due to COVID-19 virus: Plan: -Patient is unvaccinated. -Patient presenting from home with reports of cough, fever, exertional shortness of breath, nausea, poor appetite x 10 days -In the ED, tested positive for COVID-19. -On admission saturating 90-93% at rest, hypoxic in the high 80s with ambulation -CTA chest negative for pulmonary embolism, show signs of viral pneumonia -S/p dexamethasone 10 mg IV in the ED, continue with dexamethasone 6 mg IV daily. Given duration of symptoms, patient does not meet criteria for remdesivir. Also given minimal oxygen requirement does not meet criteria for immunomodulator treatment at this time. -Lasix 40 mg IV x 1 received on admission -Continue supportive care with flutter valve, incentive spirometer, encourage self proning -Clinically a little better -We will give additional dose of Lasix of 60 mg IV today-monitor BMP and CRP tomorrow -Clinically not any better and still requiring 3 L of oxygen to maintain saturation -We will give another dose of Lasix of 60 mg intravenously today -CRP is better at 7.93 today from 11.10 on admission -Clinically a little better but is still requiring 3 L oxygen to maintain saturation and is requiring BiPAP -No change clinically but the patient wants to go home -We will get PT and OT evaluation and another dose of 40 mg Lasix IV today -Not yet ready to be discharged as he is getting very short of breath with m inimal exertion and weakness -We will give 80 of intravenous Lasix today with potassium supplement -Feeling much better following higher dose of Lasix administration yesterday and will give another dose of 80 mg intravenous Lasix today -Clinically much better and will have to a stable O2 saturation test tomorrow and likely home following that (2) Hypoxia: Plan: As above (3) HTN (hypertension): Plan: -BP controlled, continue lisinopril -Pressure remains on the upper side (4) Depression: Plan: -Continue home medications (5) DVT prophylaxis: Plan: -SQ Lovenox Admission and Anticipated Discharge Date Admission Date: August 01, 2021 Subjective 08/02/2021 The patient was seen and examined in Covid unit He has been feeling a little better but is still requiring high flow oxygen to maintain saturation Has cough without any phlegm 08/03/2021 The patient was seen and examined in Covid unit He has been complaining of shortness of breath with minimal exertion Has cough Has been requiring 3 L of oxygen through CPAP to maintain saturation 08/04/2021 The patient was seen and examined in Covid unit He has been feeling a little better but is still requiring 3 L to maintain saturation He gets short of breath with minimal exertion 08/05/2021 The patient was seen and examined in Covid unit He remains stable and is still requiring 3 L oxygen through BIPAP to maintain saturation He has been generally weak and complains to have cough without any phlegm 08/06/2021 The patient was seen and examined in Covid unit He has been stable in bed and is still requiring 3 L of oxygen to maintain saturation He gets very short of breath with minimal exertion Has to have PT and OT evaluation and to a step O2 saturation before discharge 08/07/2021 The patient was seen and examined in medical Covid unit He has been feeling much better but is still requiring 3 L of oxygen via CPAP to maintain saturation His cough is minimal and he has had physical therapy with recommendation to go home Review of Systems Review of Systems: All systems reviewed and are unremarkable except as noted below Respiratory: Minimal shortness of breath at rest Physical Exam Physical Exam: Lying in bed with minimal shortness of breath with BiPAP Constitutional: well developed, well nourished and + morbidly obese Eyes: PERRL, conjunctivae normal, anicteric sclerae ENMT: external ear and nose normal, oropharynx normal Neck: trachea midline, no thyromegaly Respiratory: + respiratory distress (Minimal distress at rest) Auscultation: + diminished lung sounds; no crackles Cardiovascular: Rate/Rhythm: regular rate and regular rhythm Heart Sounds: normal S1 and normal S2; no murmur Extremities: + edema (1+ edema bilaterally) Gastrointestinal (Abdomen): Inspection/Auscultation: normal bowel sounds; abdomen not distended Percussion/Palpation: abdomen soft; abdomen nontender Musculoskeletal: No acute arthritis involving any joint Neurologic: Alert, awake and oriented x3. No focal sensory and motor deficit appreciated Lymphatic: no cervical or axillary lymphadenopathy Results & Data Results & Data ([facility]) Vital Signs (Past 12 Hours) Vital Signs Temp Pulse Resp BP Pulse Ox 08/07/21 07:36 36.9 C 80 20 129/78 95 Laboratory Results BMP 08/07/21 08:47 Sodium 135 L Potassium 3.8 Chloride 104 Carbon Dioxide 24 BUN 23 H Creatinine 0.87 Glucose 114 H Calcium 8.8 Medications Administered Current Inpatient Medications Acetaminophen (Acetaminophen 325 Mg Tab) 650 mg PO Q4H PRN PRN Reason: pain/fever Stop: 08/31/21 14:40 Last Admin: 08/07/21 10:06 Dose: 650 mg Documented by: Albuterol (Albuterol Hfa 8 Gm Inhaler) 2 puffs INH Q4H PRN PRN Reason: shorntess of breath Stop: 08/31/21 14:40 Calcium Carbonate (Calcium Carbonate 500 Mg Chewable Tab) 1,000 mg PO Q6H PRN PRN Reason: Indigestion Stop: 09/01/21 15:50 Last Admin: 08/03/21 07:52 Dose: 1,000 mg Documented by: Clonidine HCl (Clonidine Hcl 0.1 Mg Tab) 0.1 mg PO HS [facility] Stop: 08/31/21 20:59 Last Admin: 08/06/21 22:24 Dose: 0.1 mg Documented by: Enoxaparin Sodium (Enoxaparin Inj 40 Mg/0.4 Ml Syr) 40 mg SQ Q24H [facility] Stop: 08/31/21 14:59 Last Admin: 08/06/21 15:05 Dose: 40 mg Documented by: Dexamethasone 6 mg/ Syringe 1.5 mls @ 1 mls/min IV DAILY [facility] Stop: 08/12/21 08:59 Last Admin: 08/07/21 08:27 Dose: 1 mls/min Documented by: Lisinopril (Lisinopril 40 Mg Tab) 40 mg PO QAM [facility] Stop: 09/01/21 08:59 Last Admin: 08/07/21 08:41 Dose: 40 mg Documented by: Miscellaneous (Vyvanse~Order Awaiting Action) 1 ea N/A QS [facility] Stop: 08/31/21 15:59 Last Admin: 08/07/21 06:18 Dose: Not Given Documented by: Topiramate (Topiramate 25 Mg Tab) 75 mg PO HS [facility] Stop: 08/31/21 20:59 Last Admin: 08/06/21 22:24 Dose: 75 mg Documented by: Trazodone HCl (Trazodone Hcl 50 Mg Tab) 50 mg PO HS PRN PRN Reason: insomnia Stop: 09/01/21 20:59 Last Admin: 08/06/21 22:24 Dose: 50 mg Documented by: Vortioxetine (Vortioxetine Hydrobromide 20 Mg) 1 ea PO DAILY [facility] Stop: 09/02/21 08:59 Last Admin: 08/07/21 08:39 Dose: 1 ea Documented by:
[2021-08-07] MEDS: ENOXAPARIN INJ 40 MG/0.4 ML SYR SQ SCH (14:43)
[2021-08-07] MEDS: TOPIRAMATE 25 MG TAB PO SCH (21:14)
[2021-08-07] MEDS: cloNIDine HCL 0.1 MG TAB PO SCH (22:09)
[2021-08-08 07:24] LABS: BUN Creatinine Ratio 24.5 (10-20); Calcium 8.8 mg/dl (8.5-10.1); Creatinine Clr Calc Pharmacy 214.8 ml/min; Est GFR (African American) 127.3 ml/min; Est GFR (Non-African American) 109.8 ml/min; Potassium 3.5 mmol/L (3.5-5.1)
[2021-08-08] MEDS: dexAMETHasone 6 MG in SYRINGE 0 ML IV SCH (08:46)
[2021-08-08] MEDS: lisinopril 40 MG TAB PO SCH (08:46)
[2021-08-08] MEDS: VORTIOXETINE HYDROBROMIDE 20 MG PO SCH (08:48)
--- NOTE | 2021-08-08 12:32 | Hospitalist Progress Note ---
Date of Service August 08, 2021 Assessment & Plan (1) Pneumonia due to COVID-19 virus: Plan: -Patient is unvaccinated. -Patient presenting from home with reports of cough, fever, exertional shortness of breath, nausea, poor appetite x 10 days -In the ED, tested positive for COVID-19. -On admission saturating 90-93% at rest, hypoxic in the high 80s with ambulation -CTA chest negative for pulmonary embolism, show signs of viral pneumonia -S/p dexamethasone 10 mg IV in the ED, continue with dexamethasone 6 mg IV daily. Given duration of symptoms, patient does not meet criteria for remdesivir. Also given minimal oxygen requirement does not meet criteria for imm unomodulator treatment at this time. -Lasix 40 mg IV x 1 received on admission -Continue supportive care with flutter valve, incentive spirometer, encourage self proning -Clinically a little better -We will give additional dose of Lasix of 60 mg IV today-monitor BMP and CRP tomorrow -Clinically not any better and still requiring 3 L of oxygen to maintain saturation -We will give another dose of Lasix of 60 mg intravenously today -CRP is better at 7.93 today from 11.10 on admission -Clinically a little better but is still requiring 3 L oxygen to maintain saturation and is requiring BiPAP -No change clinically but the patient wants to go home -We will get PT and OT evaluation and another dose of 40 mg Lasix IV today -Not yet ready to be discharged as he is getting very short of breath with minimal exertion and weakness -We will give 80 of intravenous Lasix today with potassium supplement -Feeling much better following higher dose of Lasix administration yesterday and will give another dose of 80 mg intravenous Lasix today -Clinically much better and will have to a stable O2 saturation test tomorrow and likely home following that -Has been saturating normally on room air and passed the two-step O2 saturation test and he does not require any oxygen -Advised to use his CPAP as before -Will be discharged home this afternoon and will go back to work following visit to his primary care physician (2) Hypoxia: Plan: As above (3) HTN (hypertension): Plan: -BP controlled, continue lisinopril -Pressure remains on the upper side (4) Depression: Plan: -Continue home medications (5) DVT prophylaxis: Plan: -SQ Lovenox Admission and Anticipated Discharge Date Admission Date: August 01, 2021 Subjective 08/02/2021 The patient was seen and examined in Covid unit He has been feeling a little better but is still requiring high flow oxygen to maintain saturation Has cough without any phlegm 08/03/2021 The patient was seen and examined in Covid unit He has been complaining of shortness of breath with minimal exertion Has cough Has been requiring 3 L of oxygen through CPAP to maintain saturation 08/04/2021 The patient was seen and examined in Covid unit He has been feeling a little better but is still requiring 3 L to maintain saturation He gets short of breath with minimal exertion 08/05/2021 The patient was seen and examined in Covid unit He remains stable and is still requiring 3 L oxygen through BIPAP to maintain saturation He has been generally weak and complains to have cough without any phlegm 08/06/2021 The patient was seen and examined in Covid unit He has been stable in bed and is still requiring 3 L of oxygen to maintain saturation He gets very short of breath with minimal exertion Has to have PT and OT evaluation and to a step O2 saturation before discharge 08/07/2021 The patient was seen and examined in medical Covid unit He has been feeling much better but is still requiring 3 L of oxygen via CPAP to maintain saturation His cough is minimal and he has had physical therapy with recommendation to go home 08/08/2021 The patient was seen and examined in medical COVID unit He has been feeling much better and saturating normally on room air He has had to have stable O2 saturation test and recommended no oxygen at rest or with ambulation He will be discharged home this afternoon Review of Systems Review of Systems: All systems reviewed and are unremarkable except as noted below Respiratory: No shortness of breath at rest Physical Exam Physical Exam: Lying in bed with minimal shortness of breath with BiPAP Constitutional: well developed, well nourished and + morbidly obese Eyes: PERRL, conjunctivae normal, anicteric sclerae ENMT: external ear and nose normal, oropharynx normal Neck: trachea midline, no thyromegaly Respiratory: + respiratory distress (Minimal distress at rest) Auscultation: + diminished lung sounds; no crackles Cardiovascular: Rate/Rhythm: regular rate and regular rhythm Heart Sounds: normal S1 and normal S2; no murmur Extremities: + edema (1+ edema bilaterally) Gastrointestinal (Abdomen): Inspection/Auscultation: normal bowel sounds; abdomen not distended Percussion/Palpation: abdomen soft; abdomen nontender Musculoskeletal: No acute arthritis in any joint Neurologic: PERRL, EOMI, accommodation nl, no face palsy, no dysarthria Lymphatic: no cervical or axillary lymphadenopathy Results & Data Results & Data ([facility]) Vital Signs (Past 12 Hours) Vital Signs Temp Pulse Pulse Pulse Pulse Resp Resp 08/08/21 11:40 101 H 65 91 H 22 08/08/21 07:35 36.5 C 77 16 Resp Resp BP Pulse Ox Pulse Ox Pulse Ox Pulse Ox 08/08/21 11:40 18 18 90 90 93 08/08/21 07:35 92/59 L 92 Laboratory Results BMP 08/08/21 06:01 Sodium 132 L Potassium 3.5 Chloride 101 Carbon Dioxide 22 BUN 20 H Creatinine 0.82 Glucose 125 H Calcium 8.8 Medications Administered Current Inpatient Medications Acetaminophen (Acetaminophen 325 Mg Tab) 650 mg PO Q4H PRN PRN Reason: pain/fever Stop: 08/31/21 14:40 Last Admin: 08/07/21 21:14 Dose: 650 mg Documented by: Albuterol (Albuterol Hfa 8 Gm Inhaler) 2 puffs INH Q4H PRN PRN Reason: shorntess of breath Stop: 08/31/21 14:40 Calcium Carbonate (Calcium Carbonate 500 Mg Chewable Tab) 1,000 mg PO Q6H PRN PRN Reason: Indigestion Stop: 09/01/21 15:50 Last Admin: 08/03/21 07:52 Dose: 1,000 mg Documented by: Clonidine HCl (Clonidine Hcl 0.1 Mg Tab) 0.1 mg PO HS [facility] Stop: 08/31/21 20:59 Last Admin: 08/07/21 22:09 Dose: 0.1 mg Documented by: Enoxaparin Sodium (Enoxaparin Inj 40 Mg/0.4 Ml Syr) 40 mg SQ Q24H [facility] Stop: 08/31/21 14:59 Last Admin: 08/07/21 14:43 Dose: 40 mg Documented by: Dexamethasone 6 mg/ Syringe 1.5 mls @ 1 mls/min IV DAILY [facility] Stop: 08/12/21 08:59 Last Admin: 08/08/21 08:46 Dose: 1 mls/min Documented by: Lisinopril (Lisinopril 40 Mg Tab) 40 mg PO QAM [facility] Stop: 09/01/21 08:59 Last Admin: 08/08/21 08:46 Dose: 40 mg Documented by: Miscellaneous (Vyvmarcela~Order Awaiting Action) 1 ea N/A QS [facility] Stop: 08/31/21 15:59 Last Admin: 08/08/21 09:18 Dose: Not Given Documented by: Topiramate (Topiramate 25 Mg Tab) 75 mg PO HS [facility] Stop: 08/31/21 20:59 Last Admin: 08/07/21 21:14 Dose: 75 mg Documented by: Trazodone HCl (Trazodone Hcl 50 Mg Tab) 50 mg PO HS PRN PRN Reason: insomnia Stop: 09/01/21 20:59 Last Admin: 08/06/21 22:24 Dose: 50 mg Documented by: Vortioxetine (Vortioxetine Hydrobromide 20 Mg) 1 ea PO DAILY [facility] Stop: 09/02/21 08:59 Last Admin: 08/08/21 08:48 Dose: 1 ea Documented by:
--- NOTE | 2021-08-09 08:18 | Discharge Summary ---
Date of Service August 09, 2021 Admission HPI Per Admitting Provider 41-year-old male with PMH HTN, SIDRA on BiPAP, depression, and other problems listed below who presents the ED for evaluation of cough, shortness of breath, fever. Patient reports that he has been sick for the past 10 days. Reports worsening productive cough. Patient is unsure of the color of the sputum. He reports running a fever of as high as 102.8. He has been taking Tylenol. Patient reports shortness of breath with minimal exertion. He has had a very poor appetite with nausea and a couple episodes of vomiting. He also reports associated diarrhea. No abdominal pain. Denies chest pain. No lightheade dness, dizziness, diaphoresis, syncopal events. Denies urinary symptoms. In the ED, patient tested positive for COVID-19. CTA chest negative for pulmonary embolism however shows signs of COVID-19 pneumonia. Patient is saturating 90% at rest and desaturated quickly into the 80s with minimal ambulation. Patient was given IV dexamethasone 10 mg and albuterol inhaler. Admission Exam Per Admitting Provider Constitutional: + ill appearing and + obese; no acute di stress Eyes: PERRL, conjunctivae normal, anicteric sclerae ENMT: external ear and nose normal, oropharynx normal Respiratory: normal respiratory effort; no respiratory distress Auscultation: + diminished lung sounds Cardiovascular: Rate/Rhythm: regular rate and regular rhythm Vessels: normal peripheral pulses Extremities: no edema Gastrointestinal (Abdomen): normal bowel sounds, soft, nontender, no hepatosplenomegaly Musculoskeletal: no cyanosis or clubbing, extremities motor strength 5/5 Skin: no rashes, warm and dry Neurologic: PERRL, EOMI, accommodation nl, no face palsy, no dysarthria Psychiatric: A+Ox3, euthymic affect Principal Diagnosis Pneumonia due to COVID-19 virus infection, hypertension, depression Discharge Exam Lying in bed with minimal shortness of breath with BiPAP Constitutional well developed, well nourished and + morbidly obese Eyes PERRL, conjunctivae normal, anicteric sclerae ENMT external ear and nose normal, oropharynx normal Neck trachea midline, no thyromegaly Respiratory + respiratory distress (Minimal distress at rest) Auscultation: + diminished lung sounds; no crackles Cardiovascular Rate/Rhythm: regular rate and regular rhythm Heart Sounds: normal S1 and normal S2; no murmur Extremities: + edema (1+ edema bilaterally) Gastrointestinal (Abdomen) Inspection/Auscultation: normal bowel sounds; abdomen not distended Percussion/Palpation: abdomen soft; abdomen nontender Neurologic PERRL, EOMI, accommodation nl, no face palsy, no dysarthria Lymphatic no cervical or axillary lymphadenopathy Discharge Data Allergies Allergy/AdvReac Type Severity Reaction Status Date / Time naphazoline Allergy Unknown REDNESS OF Verified 08/01/21 10:15 EYES Consultations 08/01/21 11:47 ED Decision to Admit Stat Ordered Studies 08/01/21 11:07 CT angio chest PE protocol Stat Hospital Course (1) Pneumonia due to COVID-19 virus: -Patient is unvaccinated. -Patient presenting from home with reports of cough, fever, exertional shortness of breath, nausea, poor appetite x 10 days -In the ED, tested positive for COVID-19. -On admission saturating 90-93% at rest, hypoxic in the high 80s with ambulation -CTA chest negative for pulmonary embolism, show signs of viral pneumonia -S/p dexamethasone 10 mg IV in the ED, continue with dexamethasone 6 mg IV daily. Given duration of symptoms, patient does not meet criteria for remdesivir. Also given minimal oxygen requirement does not meet criteria for immunomodulator treatment at this time. -Lasix 40 mg IV x 1 received on admission -Continue supportive care with flutter valve, incentive spirometer, encourage self proning -Clinically a little better -We will give additional dose of Lasix of 60 mg IV today-monitor BMP and CRP tomorrow -Clinically not any better and still requiring 3 L of oxygen to maintain saturation -We will give another dose of Lasix of 60 mg intravenously today -CRP is better at 7.93 today from 11.10 on admission -Clinically a little better but is still requiring 3 L oxygen to maintain saturation and is requiring BiPAP -No change clinically but the patient wants to go home -We will get PT and OT evaluation and another dose of 40 mg Lasix IV today -Not yet ready to be discharged as he is getting very short of breath with minimal exertion and weakness -We will give 80 of intravenous Lasix today with potassium supplement -Feeling much better following higher dose of Lasix administration yesterday and will give another dose of 80 mg intravenous Lasix today -Clinically much better and will have to a stable O2 saturation test tomorrow and likely home following that -Has been saturating normally on room air and passed the two-step O2 saturation test and he does not require any oxygen -Advised to use his CPAP as before -Will be discharged home this afternoon and will go back to work following visit to his primary care physician (2) Hypoxia: As above (3) HTN (hypertension): -BP controlled, continue lisinopril -Pressure remains on the upper side (4) Depression: -Continue home medications (5) DVT prophylaxis: -SQ Lovenox Total Time Total Time Spent Total Time Spent (In Minutes): 35 minutes Discharge Plan Discharge Items Patient Disposition: Home - Self-Care Reason For Visit: COVID Discharge Diagnosis: Pneumonia due to COVID-19 virus infection, hypertension, depression Condition on Discharge: Fair Activity: Resume your previous activity Non-emergency contact: Primary Care Provider Call non-emergency contact if: you have any medication questions and your symptoms worsen Follow-up/Referrals: Maurilio Marks MD [Primary Care Provider] - (Date & Time 08/15/2021 11:20 AM Provider Osiel Seo DO Department Family Practice [facility] ) Diet: Regular Addtl Attending Provider Instructions: Please take precautions to avoid fall Use your CPAP as before You will need to be in quarantine until 08/11/2021 as per guidelines below: You can go back to work following evaluation by your primary care physician on 08/15/2021 Take your medications as advised Home Isolation COVID-19 Instructions The following information about Home Isolation is from the CDC Website: https://www.cdc.gov/coronavirus/2019-ncov/hcp/czjlxihc-wbmkwrw-ymjexq.html Stay home except to get medical care People who are mildly ill with COVID-19 are able to isolate at home during their illness. You should restrict activities outside your home, except for getting medical care. Do not go to work, school, or public areas. Avoid using public transportation, ride-sharing, or taxis. Separate yourself from other people and animals in your home People: As much as possible, you should stay in a specific room and away from other people in your home. Also, you should use a separate bathroom, if available. Animals: You should restrict contact with pets and other animals while you are sick with COVID-19, just like you would around other people. Although there have not been reports of pets or other animals becoming sick with COVID-19, it is still recommended that people sick with COVID-19 limit contact with animals until more information is known about the virus. When possible, have another member of your household care for your animals while you are sick. If you are sick with COVID-19, avoid contact with your pet, including petting, snuggling, being kissed or licked, and sharing food. If you must care for your pet or be around animals while you are sick, wash your hands before and after you interact with pets and wear a face mask. Call ahead before visiting your doctor If you have a medical appointment, call the healthcare provider and tell them that you have or may have COVID-19. This will help the healthcare providers office take steps to keep other people from getting infected or exposed. Wear a face mask You should wear a face mask when you are around other people (e.g., sharing a room or vehicle) or pets and before you enter a healthcare providers office. If you are not able to wear a face mask (for example, because it causes trouble breathing), then people who live with you should not stay in the same room with you, or they should wear a face mask if they enter your room. Cover your coughs and sneezes Cover your mouth and nose with a tissue when you cough or sneeze. Throw used tissues in a lined trash can. Immediately wash your hands with soap and water for at least 20 seconds or, if soap and water are not available, clean your hands with an alcohol-based hand returned goods sorter that contains at least 60% alcohol. Clean your hands often Wash your hands often with soap and water for at least 20 seconds, especially after blowing your nose, coughing, or sneezing; going to the bathroom; and before eating or preparing food. If soap and water are not readily available, use an alcohol-based hand returned goods sorter with at least 60% alcohol, covering all surfaces of your hands and rubbing them together until they feel dry. Soap and water are the best option if hands are visibly dirty. Avoid touching your eyes, nose, and mouth with unwashed hands. Avoid sharing personal household items You should not share dishes, drinking glasses, cups, eating utensils, towels, or bedding with other people or pets in your home. After using these items, they should be washed thoroughly with soap and water. Clean all high-touch surfaces everyday High touch surfaces include counters, tabletops, doorknobs, bathroom fixtures, toilets, phones, keyboards, tablets, and bedside tables. Also, clean any surfaces that may have blood, stool, or body fluids on them. Use a household cleaning spray or wipe, according to the label instructions. Labels contain instructions for safe and effective use of the cleaning product including precautions you should take when applying the product, such as wearing gloves and making sure you have good ventilation during use of the product. Monitor your symptoms Seek prompt medical attention if your illness is worsening (e.g., difficulty breathing).Beforeseeking care, call your healthcare provider and tell them that you have, or are being evaluated for, COVID-19. Put on a face mask before you enter the facility. These steps will help the healthcare providers office to keep other people in the office or waiting room from getting infected or exposed. Ask your healthcare provider to call the local or state health department. Persons who are placed under active monitoring or facilitated self- monitoring should follow instructions provided by their local health department or occupational health professionals, as appropriate. When working with your local health department check their available hours. If you have a medical emergency and need to call 911, notify the dispatch personnel that you have, or are being evaluated for COVID-19. If possible, put on a face mask before emergency medical services arrive. Discontinuing home isolation Patients with confirmed COVID-19 should remain under home isolation precautions until the risk of secondary transmission to others is thought to be low. The decision to discontinue home isolation precautions should be made on a pkau-ca-whol basis, in consultation with healthcare providers and state and local health departments. Pending Studies at Discharge: No Stand-Alone Forms: My [employer], Smoking Cessation Medications and DC Order Prescriptions: New dexamethasone 6 mg tablet 6 mg PO DAILY Qty: 4 RF: 0 Continued lisinopril [Zestril] 40 mg tablet 40 mg PO QAM RF: 0 clonidine HCl 0.1 mg tablet 0.1 mg PO HS RF: 0 topiramate [Topamax] 50 mg tablet 75 mg PO HS RF: 0 trazodone 50 mg tablet 50 - 75 mg PO HS PRN (Reason: Sleep) RF: 0 Vyvanse 30 mg capsule 30 mg PO DAILY RF: 0 Trintellix 20 mg tablet 20 mg PO DAILY RF: 0 Discharge Orders: Discharge Order (Routine); Ordered 08/08/21 Ordered By: Betito Blackburn Admission Data Admit Date/Time: 08/01/21 11:27 Attending Provider: Betito Blackburn Admit Provider: Betito Blackburn Primary Care Provider: Maurilio Marks Other Providers: Betito Blackburn Other Interventions: Discharge Summary Assessment (RN) Last Done: 08/08/21 13:47
== END 2021-08-08 15:23 | disposition home or self-care (01) | DRG 177 ==
LOC: ED 08:46 → EDINP 11:27 → 2W 20:28